=== PATIENT | female | born 1965 | race Caucasian/White ===

== ENCOUNTER 2023-03-05 11:44 | Inpatient (IN) | payer OTHER ==
[2023-03-05] MEDS ORDERED: THIAMINE 100 MG/ML 2 ML VIAL IM STA (11:58)
[2023-03-05] MEDS ORDERED: LORazepam 2 MG/ML INJ IV PRN (11:58)
[2023-03-05] MEDS ORDERED: SODIUM CHLORIDE 0.9% 1,000 ML IV STA (11:58)
--- NOTE | 2023-03-05 12:10 | ED ---
Alcohol HPI - General Chief Complaint: Alcohol Stated Complaint: ETOH Time Seen by Provider: 03/05/23 11:51 Source: patient, EMS, RN notes reviewed Mode of arrival: EMS Limitations: altered mental status (intoxication) - History of Present Illness Initial Comments: This is a 57-year-old non-binary patient who presents to the emergency department for alcohol intoxication. Patient presents from [facility]. [facility] states that his alcohol level was over 200 on the breath alcohol test. However, when I went to examine the patient, they state that they were here to take a nap. Also states that their last drink was 2 days ago. States that they consumed "a lot of vodka". Also reports a history of withdrawal seizures. States that they currently feels shaky, nauseous, and sleepy. MD Complaint: alcohol intoxication Associated Symptoms: nausea Chronic Alcohol Use: Yes - Related Data Home Medications Medication Instructions Recorded Confirmed Albuterol Inhaler [Ventolin Hfa 2 puff INHALATION RT-Q4H PRN 03/05/23 03/05/23 Inhaler] Estradiol Valerate 20 Mg/Ml 5 mg IM Q5D 03/05/23 03/05/23 FLUoxetine HCL [PROzac] 40 mg PO BID 03/05/23 03/05/23 HYDROcodone/APAP 5-325MG [[place] 1 tab PO Q4H PRN 03/05/23 03/05/23 5-325] Meloxicam [Mobic] 15 mg PO DAILY PRN 03/05/23 03/05/23 Multivitamins, Thera [Multivitamin 1 tab PO DAILY 03/05/23 03/05/23 (formulary)] Nicotine 21Mg/24Hr Patch [Habitrol] 1 patch TRANSDERM DAILY PRN 03/05/23 03/05/23 busPIRone HCl [Buspar] 5 mg PO TID 03/05/23 03/05/23 cloNIDine HCL 0.1 mg PO DAILY 03/05/23 03/05/23 diphenhydrAMINE [Benadryl] 50 mg PO TID 03/05/23 03/05/23 hydrOXYzine pamoate 100 mg PO BID PRN 03/05/23 03/05/23 oxyBUTYnin chloride [oxyBUTYnin 5 mg PO DAILY 03/05/23 03/05/23 chloride ER] traZODone HCL 150 mg PO HS 03/05/23 03/05/23 Allergies Allergy/AdvReac Type Severity Reaction Status Date / Time No Known Allergies Allergy Verified 03/05/23 14:16 Review of Systems ROS Statement: Those systems with pertinent positive or pertinent negative responses have been documented in the HPI. ROS Other: All systems not noted in ROS Statement are negative. Past Medical History Past Medical History: Cancer Additional Past Medical History / Comment(s): prostate cancer Past Psychological History: Anxiety, Depression Smoking Status: Current every day smoker Past Alcohol Use History: Heavy Past Drug Use History: None Reported General Exam Limitations: altered mental status (secondary to intoxication) General appearance: alert, appears intoxicated Head exam: Present: atraumatic, normocephalic, normal inspection Eye exam: Present: normal appearance, PERRL, EOMI. Absent: scleral icterus, conjunctival injection, periorbital swelling Respiratory exam: Present: normal lung sounds bilaterally. Absent: respiratory distress, wheezes, rales, rhonchi, stridor Cardiovascular Exam: Present: regular rate, normal rhythm, normal heart sounds. Absent: systolic murmur, diastolic murmur, rubs, gallop, clicks Neurological exam: Present: alert, oriented X3, other (intoxicated) Skin exam: Present: warm, dry, intact, normal color. Absent: rash Course Vital Signs 03/05/23 11:54 Temperature 97.2 F Pulse Rate 92 Respiratory 18 Rate Blood Pressure 126/80 O2 Sat by Pulse 96 Oximetry Medical Decision Making - Medical Decision Making This is a 57-year-old non-binary patient who presents to the emergency department for alcohol intoxication. Was pt. sent in by a medical professional or institution? @ -[facility] Did you speak to anyone other than the patient for history? @ -No Did you review nursing and triage notes? @ -Yes, and I agree, it is accurate with regards to the patient's symptoms. Were old charts reviewed? @ -No Differential Diagnosis? @ -Differential Alcohol Intoxication: Sympathomimetic syndrome, anti-muscarinic syndrome, serotonin syndrome, neuroleptic malignant syndrome, thyrotoxicosis, encephalitis, acute psychosis, hypoglycemia, trauma, sepsis. This is not meant to be an all-inclusive list. EKG interpreted by me (3pts min.)? @ -Sinus rhythm. Prolonged QT interval. Ventricular rate 89 bpm, PA interval 159 ms, QRS duration 81 ms, QTC 533 ms. X-rays interpreted by me (1pt min.)? @ -Not obtained CT interpreted by me (1pt min.)? @ -Not obtained U/S interpreted by me (1pt. min.)? @ -Not obtained What testing was considered but not performed? (CT, X-rays, U/S, labs)? Why? @ -None What meds were considered but not given? Why? @ -None Did you discuss the management of the patient with other professionals? @ -Yes, Dr. Linares, who accepts the patient for admission. Did you reconcile home meds? @ -No Was smoking cessation discussed for >3mins.? @ -No Was critical care preformed (if so, how long)? @ -No Were there social determinants of health that impacted care today? How? (Homelessness, low income, unemployed, alcoholism, drug addiction, transportation, low edu. Level, literacy, decrease access to med. care, half-way, rehab)? @ -No Was there de-escalation of care discussed even if they declined? (Discuss DNR or withdrawal of care, Hospice)? @ -No What co-morbidities impacted this encounter? (DM, HTN, Smoking, COPD, CAD, Cancer, CVA, Hep., AIDS, mental health diagnosis, sleep apnea, morbid obesity)? @ -Chronic alcoholism Was patient admitted / discharged? @ -Admitted. Lab work obtained revealing a critically low calcium of 6.2. EKG revealed a prolonged QT interval of 507 and then 533 on repeat. Ionized calcium was ordered and the patient was started on 1 g of calcium gluconate. Alcohol is also elevated at a level of 350. [facility] will not accept the patient with an alcohol greater than 300. Additionally, in light of the critically low hypocalcemia, patient will be admitted to medicine for further management. Potassium is low as well at 3.1 and they were subsequently given 40 mEq of k- dur. Magnesium oxide 400mg administered as well due to the QT prolongation. Dr. Kruse recommended a repeat CMP to verify the accuracy of the current values. CMP did overall look much better, however, this was obtained after the patient received both the calcium and potassium. The EKG revealing QT prolongation was obtained following medication administration. CIWA protocol is in place for when withdrawal symptoms start to take place. Undiagnosed new problem with uncertain prognosis? @ -None Drug Therapy requiring intensive monitoring for toxicity (Heparin, Nitro, Insulin, Cardizem)? @ -None Were any procedures done? @ -None Diagnosis/symptom? @ -Alcohol intoxication, hypocalcemia, QT prolongation Acute, or Chronic, or Acute on Chronic? @ -Acute Uncomplicated (without systemic symptoms) or Complicated (systemic symptoms)? @ -Complicated Side effects of treatment? @ -None Exacerbation, Progression, or Severe Exacerbation] @ -Not applicable Poses a threat to life or bodily function? @ -Yes This case was discussed in detail with the attending ED physician, Dr. Martínez. Presentation, findings, and treatment plan discussed in detail as well. - Lab Data Result diagrams: 03/05/23 12:14 03/05/23 14:18 Lab Results 03/05/23 03/05/23 03/05/23 Range/Units 12:14 12:14 13:08 WBC 8.3 (3.8-10.6) k/uL RBC 3.58 L (4.30-5.90) m/uL Hgb 11.9 L (13.0-17.5) gm/dL Hct 35.0 L (39.0-53.0) % MCV 97.6 (80.0-100.0) fL MCH 33.3 (25.0-35.0) pg MCHC 34.1 (31.0-37.0) g/dL RDW 14.5 (11.5-15.5) % Plt Count 146 L (150-450) k/uL MPV 7.9 Neutrophils % 79 % Lymphocytes % 11 % Monocytes % 8 % Eosinophils % 1 % Basophils % 0 % Neutrophils # 6.6 (1.3-7.7) k/uL Lymphocytes # 0.9 L (1.0-4.8) k/uL Monocytes # 0.7 (0-1.0) k/uL Eosinophils # 0.0 (0-0.7) k/uL Basophils # 0.0 (0-0.2) k/uL PT 10.8 (9.0-12.0) sec INR 1.0 (<1.2) Sodium 139 (137-145) mmol/L Potassium 3.1 L (3.5-5.1) mmol/L Chloride 112 H (98-107) mmol/L Carbon Dioxide 13 L (22-30) mmol/L Anion Gap 14 mmol/L BUN 12 (9-20) mg/dL Creatinine 0.56 L (0.66-1.25) mg/dL Est GFR (CKD-EPI)AfAm 131 (>60 ml/min/1.73 sqM) Est GFR (CKD-EPI)NonAf 113 (>60 ml/min/1.73 sqM) Glucose 72 L (74-99) mg/dL Calcium 6.2 L* (8.4-10.2) mg/dL Phosphorus 2.3 L (2.5-4.5) mg/dL Magnesium 1.6 (1.6-2.3) mg/dL Total Bilirubin 0.4 (0.2-1.3) mg/dL AST 45 (17-59) U/L ALT 16 (4-49) U/L Alkaline Phosphatase 105 (38-126) U/L Total Protein 6.0 L (6.3-8.2) g/dL Albumin 3.1 L (3.5-5.0) g/dL Amylase 42 (30-110) U/L Lipase 236 (23-300) U/L Serum Alcohol 350 H* mg/dL Disposition Clinical Impression: Hypocalcemia, Alcoholic intoxication, QT prolongation Disposition: ADMITTED IP TO THIS HOSP
[2023-03-05] MEDS ORDERED: KETOROLAC 15 MG/ML 1 ML VIAL IVP STA (12:22)
[2023-03-05 12:39] LABS: Albumin 3.1 g/dL (3.5-5.0); Magnesium 1.6 mg/dL (1.6-2.3); Phosphorus 2.3 mg/dL (2.5-4.5); Potassium 3.1 mmol/L (3.5-5.1); Total Bilirubin 0.4 mg/dL (0.2-1.3)
[2023-03-05 12:46] LABS: Basophils % (A) 0 %; Eosinophils % (A) 1 %; HGB 11.9 gm/dL (13.0-17.5); Lymphocytes # (A) 0.9 k/uL (1.0-4.8); Lymphocytes % (A) 11 %; MCH 33.3 pg (25.0-35.0); MCHC 34.1 g/dL (31.0-37.0); MCV 97.6 fL (80.0-100.0); Mean Platelet Volume 7.9; Monocytes # (A) 0.7 k/uL (0-1.0); Monocytes % (A) 8 %; Neutrophils # (A) 6.6 k/uL (1.3-7.7); Neutrophils % (A) 79 %; Platelet Count 146 k/uL (150-450); RBC 3.58 m/uL (4.30-5.90); RDW 14.5 % (11.5-15.5); WBC 8.3 k/uL (3.8-10.6)
[2023-03-05 12:57] LABS: Calcium 6.2 mg/dL (8.4-10.2)
[2023-03-05] MEDS ORDERED: CALCIUM GLUCONATE IN NACL 1 GM in SALINE 1 100ML.BAG IVPB ONE (13:05)
[2023-03-05] MEDS ORDERED: POTASSIUM CHLORIDE ER 20 MEQ TAB.ER PO STA ×2 (13:07→15:35)
[2023-03-05] MEDS ORDERED: ONDANSETRON 4 MG/2 ML VIAL IVP PRN (13:18)
[2023-03-05] MEDS ORDERED: ACETAMINOPHEN TAB 325 MG TAB PO PRN (13:18)
[2023-03-05] MEDS ORDERED: IBUPROFEN 400 MG TAB PO PRN (13:18)
[2023-03-05] MEDS ORDERED: KETOROLAC 15 MG/ML 1 ML VIAL IVP PRN (13:18)
[2023-03-05] MEDS ORDERED: NALOXONE 0.4 MG/ML 1 ML VIAL IV PRN (13:18)
[2023-03-05 13:39] LABS: Prothrombin Time 10.8 sec (9.0-12.0)
[2023-03-05 14:33] LABS: Ionized Calcium 4.6 mg/dL (4.5-5.3)
[2023-03-05 14:41] LABS: Albumin 3.7 g/dL (3.5-5.0); Calcium 7.7 mg/dL (8.4-10.2); Potassium 3.3 mmol/L (3.5-5.1); Total Bilirubin 0.4 mg/dL (0.2-1.3); Total Protein 6.7 g/dL (6.3-8.2)
[2023-03-05] MEDS: MAGNESIUM OXIDE 400 MG TAB PO STA ×2 (14:45→15:53)
[2023-03-05] MEDS: LORazepam 2 MG/ML INJ IV PRN ×2 (15:54→16:15)
[2023-03-06] MEDS: LORazepam 2 MG/ML INJ IV PRN ×5 (00:17→17:11)
[2023-03-06] MEDS ORDERED: ALBUTEROL NEBULIZED 2.5 MG/3 ML INHALATION PRN (00:47)
[2023-03-06] MEDS ORDERED: NON FORMULARY DRUG (Meloxicam [Mobic] 15 MG Tablet) PO PRN (00:47)
[2023-03-06] MEDS ORDERED: hydrOXYzine pamoate 25 MG CAP PO PRN (00:47)
[2023-03-06] MEDS ORDERED: NICOTINE 21MG/24HR PATCH TRANSDERM PRN (00:47)
[2023-03-06] MEDS ORDERED: ONDANSETRON 4 MG/2 ML VIAL IVP PRN (00:49)
--- NOTE | 2023-03-06 01:46 | P.HPIM ---
History of Present Illness H&P Date: 03/05/23 Chief Complaint: Alcohol intoxication Patient is a 57-year-old nonbinary patient presents to ER due to acute alcohol intoxication. Patient was transferred from [facility] facility. Patient was found to be intoxicated with alcohol level greater than 200. Patient has been drinking 1/5 of alcohol daily. Last drink was 9 PM last night. Patient went to [facility] for detoxification. However his complaints of generalized body pains. Does have a history of alcohol withdrawal seizures. Patient feels nauseous and shaky and sleepy. Denies any complaints of chest pain or shortness of breath. No leg swelling. No cough or sputum production. Laboratory data showed WBC 8.3 hemoglobin 11.9 and platelets 146 Sodium 139, potassium 3.1, chloride 112, bicarb 13 and calcium 6.2. Phosphorus 2.3. Magnesium 1.6. Albumin 3.1 Serum alcohol level is 350 and lipase level is 236. Review of Systems Complete review of systems could not be obtained from the patient except as per HPI. Past Medical History Past Medical History: Cancer Additional Past Medical History / Comment(s): prostate cancer Past Psychological History: Anxiety, Depression Smoking Status: Current every day smoker Past Alcohol Use History: Heavy Past Drug Use History: None Reported Medications and Allergies Home Medications Medication Instructions Recorded Confirmed Type Albuterol Inhaler [Ventolin Hfa 2 puff INHALATION RT-Q4H PRN 03/05/23 03/05/23 History Inhaler] Estradiol Valerate 20 Mg/Ml 5 mg IM Q5D 03/05/23 03/05/23 History FLUoxetine HCL [PROzac] 40 mg PO BID 03/05/23 03/05/23 History HYDROcodone/APAP 5-325MG [[place] 1 tab PO Q4H PRN 03/05/23 03/05/23 History 5-325] Meloxicam [Mobic] 15 mg PO DAILY PRN 03/05/23 03/05/23 History Multivitamins, Thera [Multivitamin 1 tab PO DAILY 03/05/23 03/05/23 History (formulary)] Nicotine 21Mg/24Hr Patch [Habitrol] 1 patch TRANSDERM DAILY PRN 03/05/23 03/05/23 History busPIRone HCl [Buspar] 5 mg PO TID 03/05/23 03/05/23 History cloNIDine HCL 0.1 mg PO DAILY 03/05/23 03/05/23 History diphenhydrAMINE [Benadryl] 50 mg PO TID 03/05/23 03/05/23 History hydrOXYzine pamoate 100 mg PO BID PRN 03/05/23 03/05/23 History oxyBUTYnin chloride [oxyBUTYnin 5 mg PO DAILY 03/05/23 03/05/23 History chloride ER] traZODone HCL 150 mg PO HS 03/05/23 03/05/23 History Allergies Allergy/AdvReac Type Severity Reaction Status Date / Time No Known Allergies Allergy Verified 03/05/23 14:16 Physical Exam Vitals: Vital Signs Temp Pulse Resp BP Pulse Ox 03/05/23 11:54 97.2 F 92 18 126/80 96 Intake and Output 03/05/23 03/05/23 03/05/23 06:59 14:59 22:59 Other: Weight 86.183 kg Results CBC & Chem 7: 03/05/23 12:14 03/05/23 14:18 Labs: Abnormal Lab Results - Last 24 Hours (Table) 03/05/23 03/05/23 03/05/23 Range/Units 12:14 12:14 14:18 RBC 3.58 L (4.30-5.90) m/uL Hgb 11.9 L (13.0-17.5) gm/dL Hct 35.0 L (39.0-53.0) % Plt Count 146 L (150-450) k/uL Lymphocytes # 0.9 L (1.0-4.8) k/uL Potassium 3.1 L 3.3 L (3.5-5.1) mmol/L Chloride 112 H (98-107) mmol/L Carbon Dioxide 13 L 19 L (22-30) mmol/L Creatinine 0.56 L (0.66-1.25) mg/dL Glucose 72 L (74-99) mg/dL Calcium 6.2 L* 7.7 L (8.4-10.2) mg/dL Phosphorus 2.3 L (2.5-4.5) mg/dL Alkaline Phosphatase 129 H (38-126) U/L Total Protein 6.0 L (6.3-8.2) g/dL Albumin 3.1 L (3.5-5.0) g/dL Serum Alcohol 350 H* mg/dL Thrombosis Risk Factor Assmnt - DVT/VTE Prophylaxis DVT/VTE Prophylaxis: Pharmacologic Prophylaxis ordered Assessment and Plan Assessment: Acute alcohol intoxication with alcohol level 350. Hypocalcemia Hypokalemia and hypomagnesemia Alcohol abuse Anxiety/depression History of prostate cancer GI and DVT prophylaxis Plan: Patient will be continued on IV hydration with normal saline. Patient was given calcium gluconate. Repeat calcium level 7.7. Albumin 3.7. Follow-up vitamin D level. Continue to monitor for alcohol withdrawal symptoms. Replace electrolytes and follow closely. Time with Patient: Greater than 30
[2023-03-06] MEDS: SODIUM CHLORIDE 0.9% 1,000 ML IV SCH ×2 (03:23→17:06)
[2023-03-06] MEDS: MAGNESIUM SULFATE-D5W PMX 1 GM in DEXTROSE/WATER 1 100ML.BAG IVPB SCH ×2 (03:24→04:38)
[2023-03-06] MEDS: traZODone HCL 50 MG TAB PO SCH ×2 (03:47→19:53)
[2023-03-06] MEDS: busPIRone HCl 5 MG TAB PO SCH ×4 (03:48→19:53)
[2023-03-06] MEDS: HEPARIN SODIUM,PORCINE/PF 5,000 UNIT/0.5 ML SYRINGE SQ SCH ×2 (08:32→17:06)
[2023-03-06] MEDS: FLUoxetine HCL 20 MG CAP PO SCH ×2 (08:33→19:53)
[2023-03-06] MEDS: THIAMINE 100 MG TAB PO SCH (08:33)
[2023-03-06] MEDS: PANTOPRAZOLE 40 MG/10 ML VIAL IVP SCH (08:33)
[2023-03-06] MEDS: OXYBUTYNIN XL 5 MG TAB.ER.24 PO SCH (08:33)
[2023-03-06] MEDS: MULTIVITAMINS, THERA 1 EACH TAB PO SCH (08:33)
[2023-03-06] MEDS ORDERED: ESTRADIOL VALERATE IM SCH (09:00)
[2023-03-06 09:21] LABS: Calcium 7.8 mg/dL (8.4-10.2); Potassium 4.1 mmol/L (3.5-5.1)
[2023-03-06] MEDS: HYDROcodone/APAP 5-325MG 1 EACH TAB PO PRN (11:13)
--- NOTE | 2023-03-06 14:57 | P.PN ---
Subjective Progress Note Date: 03/06/23 Patient is a 57-year-old nonbinary patient presents to ER due to acute alcohol intoxication. Patient was transferred from [facility] facility. Patient was found to be intoxicated with alcohol level greater than 200. Patient has been drinking 1/5 of alcohol daily. Last drink was 9 PM last night. Patient went to [facility] for detoxification. However his complaints of generalized body pains. Does have a history of alcohol withdrawal seizures. Patient feels nauseous and shaky and sleepy. Denies any complaints of chest pain or shortness of breath. No leg swelling. No cough or sputum production. Laboratory data showed WBC 8.3 hemoglobin 11.9 and platelets 146 Sodium 139, potassium 3.1, chloride 112, bicarb 13 and calcium 6.2. Phosphorus 2.3. Magnesium 1.6. Albumin 3.1 Serum alcohol level is 350 and lipase level is 236. 03/06. Patient seen and examined. Sodium this morning is 131, potassium 4.1, BUN is 15, creatinine 0.61, calcium 7.8. Patient still complaining of generalized body aches. Denies any auditory or visual hallucinations REVIEW OF SYSTEMS: CONSTITUTIONAL: No fever, no malaise,. CARDIOVASCULAR: No chest pain, no palpitations, no syncope. PULMONARY: No shortness of breath, no cough, GASTROINTESTINAL: No diarrhea, no nausea, no vomiting, no abdominal pain. NEUROLOGICAL: No headaches, no weakness, PHYSICAL EXAMINATION: GENERAL: The patient is alert and oriented x3, not in any acute distress. Well developed, well nourished. HEENT: Pupils are round and equally reacting to light. EOMI. No scleral icterus. No conjunctival pallor. Normocephalic, atraumatic. No pharyngeal erythema. No thyromegaly. CARDIOVASCULAR: S1 and S2 present. No murmurs, rubs, or gallops. PULMONARY: Chest is clear to auscultation, no wheezing or crackles. ABDOMEN: Soft, nontender, nondistended, normoactive bowel sounds. No palpable organomegaly. MUSCULOSKELETAL: No joint swelling or deformity. EXTREMITIES: No cyanosis, clubbing, or pedal edema. NEUROLOGICAL: Gross neurological examination did not reveal any focal deficits. SKIN: No rashes. Assessment and plan Acute alcohol intoxication with alcohol level 350. Hypocalcemia Hypokalemia and hypomagnesemia Alcohol abuse Anxiety/depression History of prostate cancer Monitor vital signs Monitor CBC Monitor CMP Continue telemetry monitoring Continue CIWA protocol Continue thiamine and folic acid Continue IV fluids Patient was given calcium gluconate. Repeat calcium level 7.7. Albumin 3.7. Follow-up vitamin D level. Continue to monitor for alcohol withdrawal symptoms. Replace electrolytes and follow closely. Objective - Vital Signs Vital signs: Vital Signs Temp 98.5 F 03/06/23 08:00 Pulse 97 03/06/23 11:15 Resp 24 03/06/23 11:15 BP 113/64 03/06/23 11:15 Pulse Ox 97 03/06/23 11:15 FiO2 Intake & Output 03/05/23 03/06/23 03/06/23 18:59 06:59 18:59 Intake Total 640 118 Balance 640 118 Weight 86.183 kg 86.183 kg Intake: Intake, IV Titration 100 Amount Magnesium Sulfate-D5w Pmx 100 1 gm In Dextrose/Water 1 100ml.bag @ 100 mls/hr IVPB Q1H [facility] Rx#: [id number] Oral 540 118 Other: Voiding Method Urinal Urinal # Voids 1 1 - Labs CBC & Chem 7: 03/05/23 12:14 03/06/23 08:25 Labs: Abnormal Lab Results - Last 24 Hours (Table) 03/05/23 03/05/23 03/05/23 Range/Units 12:14 12:14 14:18 RBC 3.58 L (4.30-5.90) m/uL Hgb 11.9 L (13.0-17.5) gm/dL Hct 35.0 L (39.0-53.0) % Plt Count 146 L (150-450) k/uL Lymphocytes # 0.9 L (1.0-4.8) k/uL Sodium (137-145) mmol/L Potassium 3.1 L 3.3 L (3.5-5.1) mmol/L Chloride 112 H (98-107) mmol/L Carbon Dioxide 13 L 19 L (22-30) mmol/L Creatinine 0.56 L (0.66-1.25) mg/dL Glucose 72 L (74-99) mg/dL Calcium 6.2 L* 7.7 L (8.4-10.2) mg/dL Phosphorus 2.3 L (2.5-4.5) mg/dL Alkaline Phosphatase 129 H (38-126) U/L Total Protein 6.0 L (6.3-8.2) g/dL Albumin 3.1 L (3.5-5.0) g/dL Serum Alcohol 350 H* mg/dL 03/06/23 Range/Units 08:25 RBC (4.30-5.90) m/uL Hgb (13.0-17.5) gm/dL Hct (39.0-53.0) % Plt Count (150-450) k/uL Lymphocytes # (1.0-4.8) k/uL Sodium 131 L (137-145) mmol/L Potassium (3.5-5.1) mmol/L Chloride (98-107) mmol/L Carbon Dioxide 19 L (22-30) mmol/L Creatinine 0.61 L (0.66-1.25) mg/dL Glucose 143 H (74-99) mg/dL Calcium 7.8 L (8.4-10.2) mg/dL Phosphorus (2.5-4.5) mg/dL Alkaline Phosphatase (38-126) U/L Total Protein (6.3-8.2) g/dL Albumin (3.5-5.0) g/dL Serum Alcohol mg/dL
[2023-03-07] MEDS: HEPARIN SODIUM,PORCINE/PF 5,000 UNIT/0.5 ML SYRINGE SQ SCH ×4 (00:09→23:51)
[2023-03-07] MEDS: LORazepam 2 MG/ML INJ IV PRN ×3 (07:02→11:47)
[2023-03-07] MEDS: PANTOPRAZOLE 40 MG/10 ML VIAL IVP SCH (07:55)
[2023-03-07] MEDS: THIAMINE 100 MG TAB PO SCH (07:55)
[2023-03-07] MEDS: MULTIVITAMINS, THERA 1 EACH TAB PO SCH (07:56)
[2023-03-07] MEDS: OXYBUTYNIN XL 5 MG TAB.ER.24 PO SCH (07:56)
[2023-03-07] MEDS: busPIRone HCl 5 MG TAB PO SCH ×3 (07:56→21:03)
[2023-03-07] MEDS: FLUoxetine HCL 20 MG CAP PO SCH ×2 (07:56→21:03)
[2023-03-07 09:17] LABS: Basophils % (A) 0 %; Eosinophils # (A) 0.1 k/uL (0-0.7); Eosinophils % (A) 2 %; HCT 33.3 % (39.0-53.0); HGB 10.8 gm/dL (13.0-17.5); Lymphocytes # (A) 0.9 k/uL (1.0-4.8); Lymphocytes % (A) 18 %; MCHC 32.4 g/dL (31.0-37.0); MCV 101.8 fL (80.0-100.0); Macrocytosis Slight; Monocytes # (A) 0.2 k/uL (0-1.0); Monocytes % (A) 5 %; Neutrophils # (A) 3.6 k/uL (1.3-7.7); Neutrophils % (A) 74 %; Platelet Count 194 k/uL (150-450); RBC 3.28 m/uL (4.30-5.90); RDW 14.3 % (11.5-15.5); WBC 4.9 k/uL (3.8-10.6)
[2023-03-07 09:31] LABS: Potassium 3.9 mmol/L (3.5-5.1); Total Bilirubin 0.6 mg/dL (0.2-1.3)
[2023-03-07] MEDS: SODIUM CHLORIDE 0.9% 1,000 ML IV SCH ×2 (09:47→15:52)
[2023-03-07] MEDS: HYDROcodone/APAP 5-325MG 1 EACH TAB PO PRN ×2 (11:46→21:08)
--- NOTE | 2023-03-07 13:25 | P.PN ---
Subjective Progress Note Date: 03/07/23 Patient is a 57-year-old nonbinary patient presents to ER due to acute alcohol intoxication. Patient was transferred from [facility] facility. Patient was found to be intoxicated with alcohol level greater than 200. Patient has been drinking 1/5 of alcohol daily. Last drink was 9 PM last night. Patient went to [facility] for detoxification. However his complaints of generalized body pains. Does have a history of alcohol withdrawal seizures. Patient feels nauseous and shaky and sleepy. Denies any complaints of chest pain or shortness of breath. No leg swelling. No cough or sputum production. Laboratory data showed WBC 8.3 hemoglobin 11.9 and platelets 146 Sodium 139, potassium 3.1, chloride 112, bicarb 13 and calcium 6.2. Phosphorus 2.3. Magnesium 1.6. Albumin 3.1 Serum alcohol level is 350 and lipase level is 236. 03/06. Patient seen and examined. Sodium this morning is 131, potassium 4.1, BUN is 15, creatinine 0.61, calcium 7.8. Patient still complaining of generalized body aches. Denies any auditory or visual hallucinations 03/07. Patient seen and examined. Still complaining of generalized body aches. WBC 4.9, hemoglobin 10.8, sodium 133, potassium 3.9, BUN is 9, creatinine 0.63, REVIEW OF SYSTEMS: CONSTITUTIONAL: No fever, no malaise,. CARDIOVASCULAR: No chest pain, no palpitations, no syncope. PULMONARY: No shortness of breath, no cough, GASTROINTESTINAL: No diarrhea, no nausea, no vomiting, no abdominal pain. NEUROLOGICAL: No headaches, no weakness, PHYSICAL EXAMINATION: GENERAL: The patient is alert and oriented x3, not in any acute distress. Well developed, well nourished. HEENT: Pupils are round and equally reacting to light. EOMI. No scleral icterus. No conjunctival pallor. Normocephalic, atraumatic. No pharyngeal erythema. No thyromegaly. CARDIOVASCULAR: S1 and S2 present. No murmurs, rubs, or gallops. PULMONARY: Chest is clear to auscultation, no wheezing or crackles. ABDOMEN: Soft, nontender, nondistended, normoactive bowel sounds. No palpable organomegaly. MUSCULOSKELETAL: No joint swelling or deformity. EXTREMITIES: No cyanosis, clubbing, or pedal edema. NEUROLOGICAL: Gross neurological examination did not reveal any focal deficits. SKIN: No rashes. Assessment and plan Acute alcohol intoxication with alcohol level 350. Hypocalcemia Hypokalemia and hypomagnesemia Alcohol abuse Anxiety/depression History of prostate cancer Vitamin D insufficiency Monitor vital signs Monitor CBC Monitor CMP Continue telemetry monitoring Continue CIWA protocol Continue thiamine and folic acid Start Os-Emigdio Continue IV fluids Continue to monitor for alcohol withdrawal symptoms. Replace electrolytes and follow closely. Objective - Vital Signs Vital signs: Vital Signs Temp 98.3 F 03/07/23 11:32 Pulse 85 03/07/23 11:32 Resp 16 03/07/23 11:32 BP 119/75 03/07/23 11:32 Pulse Ox 98 03/07/23 11:32 FiO2 Intake & Output 03/06/23 03/07/23 03/07/23 18:59 06:59 18:59 Intake Total 236 540 596 Output Total 300 Balance -64 540 596 Intake: Oral 236 540 596 Output: Urine 300 Other: Voiding Method Urinal Urinal Urinal # Voids 1 - Labs CBC & Chem 7: 03/07/23 08:34 03/07/23 08:34 Labs: Abnormal Lab Results - Last 24 Hours (Table) 03/06/23 03/07/23 03/07/23 Range/Units 08:25 08:34 08:34 RBC 3.28 L (4.30-5.90) m/uL Hgb 10.8 L (13.0-17.5) gm/dL Hct 33.3 L (39.0-53.0) % MCV 101.8 H (80.0-100.0) fL Lymphocytes # 0.9 L (1.0-4.8) k/uL Sodium 133 L (137-145) mmol/L Creatinine 0.63 L (0.66-1.25) mg/dL Glucose 127 H (74-99) mg/dL Calcium 8.0 L (8.4-10.2) mg/dL Total Protein 6.0 L (6.3-8.2) g/dL Albumin 3.0 L (3.5-5.0) g/dL Vitamin D 25-Hydroxy 28.4 L (30.0-100.0) ng/mL
[2023-03-07] MEDS: CALCIUM CARB-VIT D 500 MG-5 MCG TAB PO SCH (16:56)
[2023-03-07] MEDS: traZODone HCL 50 MG TAB PO SCH (21:03)
[2023-03-08] MEDS: HYDROcodone/APAP 5-325MG 1 EACH TAB PO PRN (03:22)
[2023-03-08 03:59] LABS: Amphetamine Screen,Urine Not Detected (NotDetected); Barbiturate Screen,Urine Not Detected (NotDetected); Benzodiazepines Screen,Urine Detected (NotDetected); Cocaine Screen,Urine Not Detected (NotDetected); Methadone Screen, Urine Not Detected (NotDetected); Opiate Screen,Urine Detected (NotDetected); Oxycodone Screen, Urine Not Detected (NotDetected); Phencyclidine Screen,Urine Not Detected (NotDetected); Tricyclic Antidepressant,Urine Not Detected (NotDetected); Urn Cannabinoid Scrn Not Detected (NotDetected)
[2023-03-08] MEDS: CALCIUM CARB-VIT D 500 MG-5 MCG TAB PO SCH (07:00)
[2023-03-08] MEDS: FLUoxetine HCL 20 MG CAP PO SCH (09:42)
[2023-03-08] MEDS: busPIRone HCl 5 MG TAB PO SCH (09:42)
[2023-03-08] MEDS: MULTIVITAMINS, THERA 1 EACH TAB PO SCH (09:42)
[2023-03-08] MEDS: THIAMINE 100 MG TAB PO SCH (09:42)
[2023-03-08] MEDS: OXYBUTYNIN XL 5 MG TAB.ER.24 PO SCH (09:42)
[2023-03-08] MEDS: HEPARIN SODIUM,PORCINE/PF 5,000 UNIT/0.5 ML SYRINGE SQ SCH (09:43)
[2023-03-08] MEDS: PANTOPRAZOLE 40 MG/10 ML VIAL IVP SCH (09:43)
[2023-03-08 10:33] VITALS: BP 120/68; PULSE 78; RESP 16; TEMP 98.8
--- NOTE | 2023-03-08 13:56 | P.DS ---
Providers Date of admission: 03/05/23 14:07 Expected date of discharge: 03/08/23 Attending physician: Gem Linares Primary care physician: Stated None Hospital Course: Discharge diagnoses; Acute alcohol intoxication with alcohol level 350. Hypocalcemia Hypokalemia and hypomagnesemia Alcohol abuse Anxiety/depression History of prostate cancer Vitamin D insufficiency Hospital course; Patient is a 57-year-old nonbinary patient presents to ER due to acute alcohol intoxication. Patient was transferred from [facility] facility. Patient was found to be intoxicated with alcohol level greater than 200. Patient has been drinking 1/5 of alcohol daily. Last drink was 9 PM last night. Patient went to [facility] for detoxification. However his complaints of generalized body pains. Does have a history of alcohol withdrawal seizures. Patient feels nauseous and shaky and sleepy. Denies any complaints of chest pain or shortness of breath. No leg swelling. No cough or sputum production. Laboratory data showed WBC 8.3 hemoglobin 11.9 and platelets 146 Sodium 139, potassium 3.1, chloride 112, bicarb 13 and calcium 6.2. Phosphorus 2.3. Magnesium 1.6. Albumin 3.1 Serum alcohol level is 350 and lipase level is 236. 03/06. Patient seen and examined. Sodium this morning is 131, potassium 4.1, BUN is 15, creatinine 0.61, calcium 7.8. Patient still complaining of generalized body aches. Denies any auditory or visual hallucinations 03/07. Patient seen and examined. Still complaining of generalized body aches. WBC 4.9, hemoglobin 10.8, sodium 133, potassium 3.9, BUN is 9, creatinine 0.63, 03/08. Patient seen and examined. Patient CIWA scores have been low. Patient medically cleared for discharge back to [facility] PHYSICAL EXAMINATION: GENERAL: The patient is alert and oriented x3, not in any acute distress. Well developed, well nourished. HEENT: Pupils are round and equally reacting to light. EOMI. No scleral icterus. No conjunctival pallor. Normocephalic, atraumatic. No pharyngeal erythema. No thyromegaly. CARDIOVASCULAR: S1 and S2 present. No murmurs, rubs, or gallops. PULMONARY: Chest is clear to auscultation, no wheezing or crackles. ABDOMEN: Soft, nontender, nondistended, normoactive bowel sounds. No palpable organomegaly. MUSCULOSKELETAL: No joint swelling or deformity. EXTREMITIES: No cyanosis, clubbing, or pedal edema. NEUROLOGICAL: Gross neurological examination did not reveal any focal deficits. SKIN: No rashes. Patient Condition at Discharge: Stable Plan - Discharge Summary Discharge Rx Participant: Yes New Discharge Prescriptions: New Calcium Carb-Vit D 500Mg-5Mcg [Oscal 500+D 5 Mcg (200 Iu)] 1 each PO BID- W/MEALS #30 tab Thiamine [Vitamin B-1] 100 mg PO DAILY #30 tab Continue FLUoxetine HCL [PROzac] 40 mg PO BID oxyBUTYnin chloride [oxyBUTYnin chloride ER] 5 mg PO DAILY Nicotine 21Mg/24Hr Patch [Habitrol] 1 patch TRANSDERM DAILY PRN PRN Reason: Nicotine Cravings Multivitamins, Thera [Multivitamin (formulary)] 1 tab PO DAILY traZODone HCL 150 mg PO HS Albuterol Inhaler [Ventolin Hfa Inhaler] 2 puff INHALATION RT-Q4H PRN PRN Reason: Shortness Of Breath busPIRone HCl [Buspar] 5 mg PO TID hydrOXYzine pamoate 100 mg PO BID PRN PRN Reason: Anxiety Meloxicam [Mobic] 15 mg PO DAILY PRN PRN Reason: Pain diphenhydrAMINE [Benadryl] 50 mg PO TID cloNIDine HCL 0.1 mg PO DAILY HYDROcodone/APAP 5-325MG [[place] 5-325] 1 tab PO Q4H PRN PRN Reason: Pain Estradiol Valerate 20 Mg/Ml 5 mg IM Q5D Discharge Medication List Albuterol Inhaler [Ventolin Hfa Inhaler] 2 puff INHALATION RT-Q4H PRN 03/05/23 [History] Estradiol Valerate 20 Mg/Ml 5 mg IM Q5D 03/05/23 [History] FLUoxetine HCL [PROzac] 40 mg PO BID 03/05/23 [History] HYDROcodone/APAP 5-325MG [[place] 5-325] 1 tab PO Q4H PRN 03/05/23 [History] Meloxicam [Mobic] 15 mg PO DAILY PRN 03/05/23 [History] Multivitamins, Thera [Multivitamin (formulary)] 1 tab PO DAILY 03/05/23 [History] Nicotine 21Mg/24Hr Patch [Habitrol] 1 patch TRANSDERM DAILY PRN 03/05/23 [History] busPIRone HCl [Buspar] 5 mg PO TID 03/05/23 [History] cloNIDine HCL 0.1 mg PO DAILY 03/05/23 [History] diphenhydrAMINE [Benadryl] 50 mg PO TID 03/05/23 [History] hydrOXYzine pamoate 100 mg PO BID PRN 03/05/23 [History] oxyBUTYnin chloride [oxyBUTYnin chloride ER] 5 mg PO DAILY 03/05/23 [History] traZODone HCL 150 mg PO HS 03/05/23 [History] Calcium Carb-Vit D 500Mg-5Mcg [[place] 500+D 5 Mcg (200 Iu)] 1 each PO BID-W/MEALS #30 tab 03/08/23 [Rx] Thiamine [Vitamin B-1] 100 mg PO DAILY #30 tab 03/08/23 [Rx] Follow up Appointment(s)/Referral(s): None,Stated [Primary Care Provider] - 1-2 days Activity/Diet/Wound Care/Special Instructions: Return to [facility] [phone] [address] [place] [address] Discharge Disposition: OTHER INSTITUTION NOT DEFINED
== END 2023-03-08 16:20 | disposition home or self-care (01) | DRG 775 ==
LOC: EDSEX → EC 11:44 → 4SSUR 14:07 → 3SCARD 14:46
PROVIDERS: ADMIT Internal Medicine; ATTEND Internal Medicine
DX: F10.129 Alcohol abuse with intoxication, unspecified (principal); Y90.8 Blood alcohol level of 240 mg/100 ml or more; E83.51 Hypocalcemia; E83.42 Hypomagnesemia; E87.6 Hypokalemia; F32.A Depression, unspecified; F41.9 Anxiety disorder, unspecified
CPT/HCPCS: 36415; 80048; 80053; 80306; 80320; 82150; 82306; 82330; 83690; 83735; 84100; 85025; 85610; 93005; 94640; 96361; 96365; 96372; 96375; 96376; 99285

== ENCOUNTER 2023-03-11 19:28 | Observation (INO) | payer OTHER ==
[2023-03-11] MEDS ORDERED: ONDANSETRON 4 MG/2 ML VIAL IVP STA (20:02)
[2023-03-11] MEDS ORDERED: LORazepam 2 MG/ML INJ IV PRN (20:03)
[2023-03-11] MEDS ORDERED: LORazepam 0.5 MG TAB PO PRN (20:03)
[2023-03-11] MEDS ORDERED: LORazepam 1 MG TAB PO PRN (20:03)
[2023-03-11] MEDS ORDERED: SODIUM CHLORIDE 0.9% 1,000 ML with MVI, ADULT NO.4 WITH VIT K 10 ML, THIAMINE 100 MG, F... IV ONE ×4 (20:30)
[2023-03-11 20:46] LABS: Basophils % (A) 0 %; Eosinophils # (A) 0.1 k/uL (0-0.7); Eosinophils % (A) 2 %; HCT 39.7 % (34.0-46.0); HGB 13.2 gm/dL (11.4-16.0); Lymphocytes # (A) 1.7 k/uL (1.0-4.8); Lymphocytes % (A) 19 %; MCHC 33.2 g/dL (31.0-37.0); MCV 102.3 fL (80.0-100.0); Macrocytosis Slight; Mean Platelet Volume 7.8; Monocytes # (A) 0.7 k/uL (0-1.0); Monocytes % (A) 8 %; Neutrophils # (A) 5.9 k/uL (1.3-7.7); Neutrophils % (A) 69 %; Platelet Count 242 k/uL (150-450); RBC 3.88 m/uL (3.80-5.40); RDW 13.8 % (11.5-15.5); WBC 8.5 k/uL (3.8-10.6)
[2023-03-11 20:57] LABS: ALT 18 U/L (4-34); AST 26 U/L (14-36); African American GFR (CKD) >90 (>60 ml/min/1.73 sqM); Albumin 4.1 g/dL (3.5-5.0); Alcohol <10 mg/dL; Alkaline Phosphatase 114 U/L (38-126); Anion Gap 10 mmol/L; Blood Urea Nitrogen 15 mg/dL (7-17); Calcium 9.8 mg/dL (8.4-10.2); Carbon Dioxide 25 mmol/L (22-30); Chloride 98 mmol/L (98-107); Glucose 100 mg/dL (74-99); Lipase 243 U/L (23-300); Non-African American GFR(CKD) 88 (>60 ml/min/1.73 sqM); Sodium 133 mmol/L (137-145); Total Bilirubin 0.4 mg/dL (0.2-1.3); Total Protein 7.7 g/dL (6.3-8.2)
[2023-03-11] MEDS: LORazepam 2 MG/ML INJ IV PRN ×2 (20:57→23:38)
[2023-03-11 21:04] LABS: Appearance,Urine Clear (Clear); Bacteria,Urine Rare /hpf; Bilirubin,Urine Negative (Negative); Blood,Urine Negative (Negative); Color,Urine Yellow; Glucose,Urine (UA) Negative (Negative); Ketones,Urine Negative (Negative); Leukocyte Esterase,Urine Trace (Negative); Mucus,Urine Moderate /hpf; Nitrite,Urine Negative (Negative); PH, Urine 6.5 (5.0-8.0); Protein,Urine Trace (Negative); RBC,Urine 1 /hpf (0-5); Squamous Epithelial Cell,Urine 4 /hpf (0-4); WBC,Urine 1 /hpf (0-5)
[2023-03-11] MEDS ORDERED: NALOXONE 0.4 MG/ML 1 ML VIAL IV PRN (22:09)
[2023-03-11] MEDS ORDERED: ONDANSETRON 4 MG/2 ML VIAL IVP PRN (22:09)
--- NOTE | 2023-03-11 22:26 | ED ---
Psych HPI - General Chief Complaint: Psychiatric Symptoms Stated Complaint: ALC DETOX Time Seen by Provider: 03/11/23 19:49 Source: patient Mode of arrival: ambulatory - History of Present Illness Initial Comments: Patient is a 57-year-old female presents to the emergency department for alcohol withdrawal. Apparently patient was sent to [facility] for detox and psychiatric evaluation for suicidal ideation. Patient was discharged from [facility] and drank alcohol before presenting to [facility] again. Patient was then sent to our emergency department for detox. Last drink was this morning. Patient drinks a fifth of vodka daily. She does have history of withdrawal seizures. States she is not suicidal anymore but still like to talk to psychiatric services. Denies homicidal ideation. Denies visual and auditory hallucinations. Denies drug use. Patient has no other concerns at this time including fever, chills, headache, shortness of breath, cough, chest pain, abdominal pain, nausea, vomiting, diarrhea, and burning with urination. - Related Data Allergies Allergy/AdvReac Type Severity Reaction Status Date / Time No Known Allergies Allergy Verified 03/11/23 21:46 Review of Systems ROS Statement: Those systems with pertinent positive or pertinent negative responses have been documented in the HPI. ROS Other: All systems not noted in ROS Statement are negative. Past Medical History Past Medical History: Cancer, COPD, Myocardial Infarction ([place]), Osteoarthritis ([place]) Past Surgical History: Heart Catheterization With Stent Past Psychological History: Anxiety, Depression Smoking Status: Current every day smoker Past Alcohol Use History: Abuse Past Drug Use History: None Reported General Exam Limitations: no limitations General appearance: alert, in no apparent distress Head exam: Present: atraumatic, normocephalic, normal inspection ENT exam: Present: other (Tongue fasciculation) Respiratory exam: Present: normal lung sounds bilaterally. Absent: respiratory distress, wheezes, rales, rhonchi, stridor Cardiovascular Exam: Present: regular rate, normal rhythm, normal heart sounds. Absent: systolic murmur, diastolic murmur, rubs, gallop, clicks GI/Abdominal exam: Present: soft, normal bowel sounds. Absent: distended, tenderness, guarding, rebound, rigid Extremities exam: Present: other (Tremulous) Neurological exam: Present: alert, oriented X3, CN II-XII intact Psychiatric exam: Present: normal affect, normal mood Skin exam: Present: warm, dry, intact, normal color. Absent: rash Course Vital Signs 03/11/23 03/11/23 03/11/23 19:40 20:50 21:58 Temperature 98.1 F 98.1 F Pulse Rate 95 78 80 Respiratory 22 20 17 Rate Blood Pressure 142/72 140/96 132/82 O2 Sat by Pulse 100 99 98 Oximetry Medical Decision Making - Medical Decision Making Was pt. sent in by a medical professional or institution ([facility], [facility], urgent care, hospital, or usp...) When possible be specific @ -No Did you speak to anyone other than the patient for history (EMS, parent, family, police, friend...)? What history was obtained from this source @ -No Did you review nursing and triage notes (agree or disagree)? Why? @ -I reviewed and agree with nursing and triage notes Were old charts reviewed (outside hosp., previous admission, EMS record, old EKG, old radiological studies, urgent care reports/EKG's, usp records)? Report findings @ -No old charts were reviewed Differential Diagnosis (chest pain, altered mental status, abdominal pain women, abdominal pain men, vaginal bleeding, weakness, fever, dyspnea, syncope, headache, dizziness, GI bleed, back pain, seizure, CVA, palpatations, mental health)? @ -alcohol withdrawal, delirium tremens, drug withdrawal EKG interpreted by me (3pts min.). @ -As above X-rays interpreted by me (1pt min.). @ -None done CT interpreted by me (1pt min.). @ -None done U/S interpreted by me (1pt. min.). @ -None done What testing was considered but not performed or refused? (CT, X-rays, U/S, labs)? Why? @ -None What meds were considered but not given or refused? Why? @ -None Did you discuss the management of the patient with other professionals (professionals i.e. [facility], [facility], lab, RT, psych nurse, child protective services social worker, library clerical assistant, teacher, agricultural technical officer, patient case coordinator)? Give summary @ -No Was smoking cessation discussed for >3mins.? @ -No Was critical care preformed (if so, how long)? @ -No Were there social determinants of health that impacted care today? How? (Homelessness, low income, unemployed, alcoholism, drug addiction, lopez sportation, low edu. Level, literacy, decrease access to med. care, chcf, rehab)? @ -No Was there de-escalation of care discussed even if they declined (Discuss DNR or withdrawal of care, Hospice)? DNR status @ -No What co-morbidities impacted this encounter? (DM, HTN, Smoking, COPD, CAD, Cancer, CVA, ARF, Chemo, Hep., AIDS, mental health diagnosis, sleep apnea, morbid obesity)? @ -None Was patient admitted / discharged? Hospital course, mention meds given and route, prescriptions, significant lab abnormalities, going to OR and other pertinent info. @ Patient presenting for alcohol withdrawal. Vitals within acceptable limits. CIWA protocol initiated. Labs are relatively unremarkable. Ativan and banana bag given patient to be admitted for alcohol withdrawal Dr. Barrientos accepts admission. Psych on consult Undiagnosed new problem with uncertain prognosis? @ -No Drug Therapy requiring intensive monitoring for toxicity (Heparin, Nitro, Insulin, Cardizem)? @ -No Were any procedures done? @ -No Diagnosis/symptom? @ -alcohol withdrawal Acute, or Chronic, or Acute on Chronic? @ -acute Uncomplicated (without systemic symptoms) or Complicated (systemic symptoms)? @ -complicated Side effects of treatment? @ -No Exacerbation, Progression, or Severe Exacerbation? @ -[No Poses a threat to life or bodily function? How? (Chest pain, [place], [place], pneumonia, PE, COPD, DKA, ARF, appy, cholecystitis, CVA, Diverticulitis, Homicidal, Suicidal, threat to staff... and all critical care pts) @ -No Dr. Mix is my attending - Lab Data Result diagrams: 03/11/23 20:29 03/11/23 20:29 Lab Results 03/11/23 03/11/23 03/11/23 Range/Units 20:29 20:29 20:29 WBC 8.5 (3.8-10.6) k/uL RBC 3.88 (3.80-5.40) m/uL Hgb 13.2 (11.4-16.0) gm/dL Hct 39.7 (34.0-46.0) % MCV 102.3 H (80.0-100.0) fL MCH 34.0 (25.0-35.0) pg MCHC 33.2 (31.0-37.0) g/dL RDW 13.8 (11.5-15.5) % Plt Count 242 (150-450) k/uL MPV 7.8 Neutrophils % 69 % Lymphocytes % 19 % Monocytes % 8 % Eosinophils % 2 % Basophils % 0 % Neutrophils # 5.9 (1.3-7.7) k/uL Lymphocytes # 1.7 (1.0-4.8) k/uL Monocytes # 0.7 (0-1.0) k/uL Eosinophils # 0.1 (0-0.7) k/uL Basophils # 0.0 (0-0.2) k/uL Macrocytosis Slight Sodium 133 L (137-145) mmol/L Potassium 4.0 (3.5-5.1) mmol/L Chloride 98 (98-107) mmol/L Carbon Dioxide 25 (22-30) mmol/L Anion Gap 10 mmol/L BUN 15 (7-17) mg/dL Creatinine 0.75 (0.52-1.04) mg/dL Est GFR (CKD-EPI)AfAm >90 (>60 ml/min/1.73 sqM) Est GFR (CKD-EPI)NonAf 88 (>60 ml/min/1.73 sqM) Glucose 100 H (74-99) mg/dL Calcium 9.8 (8.4-10.2) mg/dL Total Bilirubin 0.4 (0.2-1.3) mg/dL AST 26 (14-36) U/L ALT 18 (4-34) U/L Alkaline Phosphatase 114 (38-126) U/L Total Protein 7.7 (6.3-8.2) g/dL Albumin 4.1 (3.5-5.0) g/dL Lipase 243 (23-300) U/L Urine Color Yellow Urine Appearance Clear (Clear) Urine pH 6.5 (5.0-8.0) Ur Specific [place] 1.020 (1.001-1.035) Urine Protein Trace H (Negative) Urine Glucose (UA) Negative (Negative) Urine Ketones Negative (Negative) Urine Blood Negative (Negative) Urine Nitrite Negative (Negative) Urine Bilirubin Negative (Negative) Urine Urobilinogen 3.0 (<2.0) mg/dL Ur Leukocyte Esterase Trace H (Negative) Urine RBC 1 (0-5) /hpf Urine WBC 1 (0-5) /hpf Ur Squamous Epith Cells 4 (0-4) /hpf Urine Bacteria Rare H (None) /hpf Urine Mucus Moderate H (None) /hpf Serum Alcohol <10 mg/dL Disposition Clinical Impression: Alcohol withdrawal Disposition: ADMITTED IP TO THIS HOSP Condition: Stable Referrals: Adam Cook DO [Primary Care Provider] - 1-2 days
--- NOTE | 2023-03-12 00:06 | P.HPIM ---
History of Present Illness H&P Date: 03/11/23 The patient is a 48-year-old female with a PMH of alcohol abuse who presented to the emergency room sent in from [place] for alcohol withdrawal. The patient reports that she recently relapsed after several years of sobriety from alcohol and has been drinking a fifth of hard liquor daily for the past several weeks. She reports that her last drink was this past Wednesday 2 days ago. Reports feeling shaky and also endorsed mild diffuse abdominal discomfort. No history of delirium tremens or alcohol withdrawal seizures. Denied any additional complaints. Denied experiencing chest discomfort, shortness of breath, fever, chills, cough, nausea, vomiting, diarrhea. Laboratory evaluation in the emergency room was remarkable for MCV 102.3, UA unremarkable, and serum alcohol level less than 10 with sodium 133. ED documentation reviewed and case discussed with ED provider. Review of systems: Pertinent positives and negatives as discussed in HPI, a complete review of systems was performed and all other systems are negative. Physical examination: Vital signs reviewed General: non toxic, no distress, appears at stated age, normal weight Derm: no unusual rashes/lesions, warm Head: atraumatic, normocephalic, symmetric Eyes: EOMI, no lid lag, anicteric sclera, pupils equal round reactive to light ENT: Nose and ears atraumatic Neck: No cervical lymphadenopathy, trachea midline, supple Mouth: no lip lesion, mucus membranes moist, tongue fasciculations noted, smooth tongue Cardiovascular: S1S2 reg, no murmur, positive dorsalis pedis pulse bilateral, no edema Lungs: CTA bilateral, no rhonchi, no rales, no accessory muscle use Abdominal: soft, nontender to palpation, no guarding Ext: muscle strength 5 out of 5 in all 4 extremities grossly, no gross muscle atrophy, no contractures, outstretched hand tremor noted Neuro: CN II-XI grossly intact, no gross focal neuro deficits Psych: Alert, oriented, appropriate affect Assessment: Alcohol withdrawal in active alcoholic Macrocytosis Hyponatremia Imaging: None performed Data Review: Laboratory evaluation in the emergency room was remarkable for MCV 102.3, UA unremarkable, and serum alcohol level less than 10 with sodium 133. Plan: CIWA Protocol with Ativan IV Continue with IV fluids with normal saline 130 mL per hour Start patient on thiamine Check B12 and folate levels Start patient on Librium Advised patient on importance of cessation DVT prophylaxis: Heparin subcu The patient is admitted with an anticipated less than 2 midnight stay for evaluation of alcohol abuse CODE STATUS: Full Code Discussed with: Patient Anticipated discharge place: Home Past Medical History Past Medical History: Cancer, COPD, Myocardial Infarction ([place]), Osteoarthritis (OA) Past Surgical History: Heart Catheterization With Stent Past Psychological History: Anxiety, Depression Smoking Status: Current every day smoker Past Alcohol Use History: Abuse Past Drug Use History: None Reported Medications and Allergies Allergies Allergy/AdvReac Type Severity Reaction Status Date / Time No Known Allergies Allergy Verified 03/11/23 21:46 Physical Exam Vitals: Vital Signs Temp Pulse Pulse Resp BP BP Pulse Ox 03/11/23 23:11 98.8 F 89 16 136/77 99 03/11/23 22:31 98.0 F 71 19 127/81 97 03/11/23 21:58 80 17 132/82 98 03/11/23 20:50 98.1 F 78 20 140/96 99 03/11/23 19:40 98.1 F 95 22 142/72 100 Intake and Output 03/11/23 03/11/23 03/12/23 14:59 22:59 06:59 Other: Weight 68.039 kg Results CBC & Chem 7: 03/11/23 20:29 03/11/23 20:29 Labs: Abnormal Lab Results - Last 24 Hours (Table) 03/11/23 03/11/23 03/11/23 Range/Units 20:29 20:29 20:29 MCV 102.3 H (80.0-100.0) fL Sodium 133 L (137-145) mmol/L Glucose 100 H (74-99) mg/dL Urine Protein Trace H (Negative) Ur Leukocyte Esterase Trace H (Negative) Urine Bacteria Rare H (None) /hpf Urine Mucus Moderate H (None) /hpf
[2023-03-12] MEDS ORDERED: THIAMINE 100 MG/ML 2 ML VIAL IM ONE (00:15)
[2023-03-12] MEDS: SODIUM CHLORIDE 0.9% 1,000 ML IV SCH ×5 (01:24→23:32)
[2023-03-12] MEDS: chlordiazePOXIDE 25 MG CAP PO SCH ×4 (06:22→20:21)
[2023-03-12] MEDS: ACETAMINOPHEN TAB 325 MG TAB PO PRN (07:35)
[2023-03-12] MEDS: HEPARIN SODIUM,PORCINE/PF 5,000 UNIT/0.5 ML SYRINGE SQ SCH ×3 (08:41→23:30)
--- NOTE | 2023-03-12 15:07 | P.CN ---
Psychiatric Consult - . Consult date: 03/12/23 Consult:: 03/12/23 15:07 IDENTIFYING DATA: This patient is a , unemployed, 57-year-old female with a significant history of alcohol use disorder who presented for hospital on 03/11/2023 for alcohol detoxification from [facility]. HISTORY OF PRESENT ILLNESS: The patient presented to the hospital on 03/11/2023 from [facility] for alcohol detoxification. The patient was at [facility] for detox and to be evaluated psychiatrically for suicidal ideation. She was discharged [facility] but drank prior to going to [facility]. The patient was sent to our hospital for detoxification. The patient reports that her last drink was on 03/11/2023. Psychiatry has been consulted for evaluation of depression. The patient was noted by the ED doctor did not endorse any suicidal ideation however desired psychiatric services. Upon evaluation by this provider, the patient reports that she has been experiencing depression for the last 2-3 weeks. She reports significant symptoms of depression including crying every day, poor sleep, low motivation, and excessive feelings of guilt. She is however not endorsing any suicidal ideation, intention, and/or plan. She reports no prior attempts at suicide. The patient does not report any significant symptoms of bipolar disorder. She reports no periods of excessive energy, grandiosity, or increased goal-directed activity. The patient also denies any history of auditory or visual hallucinations. She does report that she does experience visual disturbances in the context of alcohol withdrawal however denies any visual disturbances outside of this. The patient reports that she has issues regarding her sobriety. She states that her last drink was on Wednesday. She relapsed into heavy alcohol use 2 months ago after being let go from her previous employment. She reports that prior to this, she was sober for many years. She also reports that she was attending AA. She states that she is drinking up to a fifth of liquor per day. She does report that she smokes about a half pack per day of tobacco. She denies any marijuana use. She denies any illicit drug use. The patient does express a desire to return to [facility] upon stabilization. PAST PSYCHIATRIC HISTORY: Patient has a history of depression and alcohol use disorder. Patient recalls being previously trialed on Prozac, diazepam, Valium, and trazodone. The patient reports no prior inpatient psychiatric admissions. The patient denies any current outpatient psychiatric follow-up. Patient denies any history of suicide attempts in the past. PAST MEDICAL HISTORY: Past Medical History: Cancer, COPD, Myocardial Infarction ([place]), Osteoarthritis (OA) Past Surgical History: Heart Catheterization With Stent Past Psychological History: Anxiety, Depression Smoking Status: Current every day smoker Past Alcohol Use History: Abuse Past Drug Use History: None Reported ALLERGIES: NO KNOWN DRUG ALLERGIES CHEMICAL DEPENDENCY HISTORY: as per HPI. FAMILY PSYCHIATRIC/SUBSTANCE USE HISTORY: The patient reports unspecified mental illness for her sisters. SOCIAL HISTORY: Patient was born and raised in [place], [place]. The patient currently lives with her sponsor for [employer]. She has an associates degree. 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 She is after been for 8 years. They when she was 30 years old. MENTAL STATUS EXAM: General Appearance: Patient appears to be stated age is alert and cooperative. Patient appears to have slightly disheveled hygiene and grooming wearing hospital gown with fair eye contact. Behavior: Patient is calmly lying in bed without any agitated behavior. Speech: Patient's speech is fluent and nonpressured. Mood/Affect: Patient reports their mood is "depressed", affect is congruent and withdrawn Suicidality/Homicidality: Patient is not reporting any suicidal or homicidal ideation, intention, and/or plan. Perceptions: Patient denies any visual hallucinations and denies any auditory hallucinations Though content/process: There is no evidence of any delusional thought content and thought process is linear and goal-directed. Memory and concentration: AOX3, grossly intact for the purposes of this session. Can spell "WORLD" backwards Judgment and insight: Fair IMPRESSIONS: Aalcohol-induced depressive disorder; rule out major depressive disorder Alcohol use disorder Acute alcohol withdrawal PLAN: -Continue medical management for alcohol withdrawal -At this time patient DOES NOT meet criteria for inpatient psychiatric admission. The patient is currently not endorsing any suicidal or homicidal ideation, intention, and/or plan. Primary diagnosis is substance related as the patient's onset of depressive symptoms started after the relapse to alcohol. The patient is future and goal oriented and expresses desire to go to inpatient substance abuse rehabilitation once stabilized medically. -Would recommend the following medication changes/additions: Continue the patient's home medication of Prozac 80 mg by mouth at bedtime for depression/anxiety. The patient reports that she is familiar with this medication with like to continue this medication rather than traveling something different. We will augment the patient's Prozac with Seroquel 25 mg at bedtime. Agree with Librium 25 mg by mouth 3 times a day for alcohol withdrawal -Patient does not require one-to-one sitter. -Approximately 20 minutes was spent providing the patient with motivational interviewing and supportive psychotherapy. -Psychiatry will follow. However, the patient is psychiatrically cleared for discharge back to rehab once withdrawal is treated. 03/12/23 15:07
--- NOTE | 2023-03-12 19:12 | P.PN ---
Subjective Progress Note Date: 03/12/23 Hospital course: Patient is a very pleasant 57-year-old male currently undergoing hormone replacement to transition to a female along with past medical history of CAD with stent, anxiety, depression, and nicotine dependence.. Pt was sent to the emergency department from [place] secondary to alcohol withdrawal and concerns for previous reported suicidal ideations. 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 Urinalysis negative for infection. Serum alcohol level < 10. patient admitted under our services with consultation to psychiatry. Patient currently denying having suicidal or homicidal ideations and denies h aving any hallucinations at this time. Physical exam: Vital signs reviewed and stable. General: Nontoxic, no distress and appears stated age. Derm: Skin warm and dry, normal coloration for ethnicity. Head: Atraumatic, normocephalic and symmetric. Eyes: EOMs intact, no lid lag, and anicteric sclera Mouth: no lip lesions, mucus membranes moist Cardiovascular: regular rate and rhythm with normal S1S2, no murmur, positive posterior tibial pulses bilaterally, and cap refill < 2 seconds. Lungs: Respirations even, regular, and unlabored on room air. Lungs CTA bilaterally, no rhonchi, no rales, no wheezing, and no accessory muscle usage. Abdominal: soft, nontender to palpation, no guarding, no appreciable organomegaly Ext: ROM intact. No gross muscle atrophy, no edema, no contractures Neuro: Speech clear, face symmetrical and CN II-XII grossly intact with no noted focal neuro deficits Psych: Alert and oriented to person, place, time, and situation. Appropriate and pleasant affect. 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 Pt has received 4 mg of Ativan ovrnight. -Continuous IV hydration. -Thiamine 100 mg twice a day -Multivitamin daily -Folate 1 mg daily -Seizure, fall, aspiration, and elopement precautions in place. -Urine drug screen -Continued close monitoring of electrolytes and replace as needed. -Telemetry monitoring. -Suicide precuations and consult to psychiatry. CODE STATUS: Full code DVT prophylaxis:Heparin Discussed with: Pt and RN Anticipated discharge date: Clinical course to determine Anticipated discharge place: Home Patient was seen independently by Nurse Pracitioner. This document was prepared using [employer] dictation software. Please allow for errors in club former, while rare they do occur. Objective - Vital Signs Vital signs: Vital Signs Temp 98.5 F 03/12/23 07:13 Pulse 84 03/12/23 07:13 Resp 18 03/12/23 07:13 BP 114/67 03/12/23 07:13 Pulse Ox 99 03/12/23 07:13 FiO2 Intake & Output 03/11/23 03/12/23 03/12/23 18:59 06:59 18:59 Weight 68.039 kg Other: Voiding Method Toilet Urinal # Voids 1 1 # Bowel Movements 0 - Labs CBC & Chem 7: 03/11/23 20:29 03/11/23 20:29 Labs: Abnormal Lab Results - Last 24 Hours (Table) 03/11/23 03/11/23 03/11/23 Range/Units 20:29 20:29 20:29 MCV 102.3 H (80.0-100.0) fL Sodium 133 L (137-145) mmol/L Glucose 100 H (74-99) mg/dL Urine Protein Trace H (Negative) Ur Leukocyte Esterase Trace H (Negative) Urine Bacteria Rare H (None) /hpf Urine Mucus Moderate H (None) /hpf
[2023-03-12] MEDS: traZODone HCL 50 MG TAB PO SCH (20:21)
[2023-03-12] MEDS: FLUoxetine HCL 20 MG CAP PO SCH (20:21)
[2023-03-12] MEDS: QUEtiapine 25 MG TAB PO SCH (20:22)
[2023-03-12] MEDS ORDERED: NON FORMULARY DRUG (Fluoxetine Hcl [Prozac] 40 MG Capsule) PO SCH (21:00)
[2023-03-13] MEDS: SODIUM CHLORIDE 0.9% 1,000 ML IV SCH (06:01)
[2023-03-13 06:11] LABS: African American GFR (CKD) >90 (>60 ml/min/1.73 sqM); Anion Gap 8 mmol/L; Blood Urea Nitrogen 12 mg/dL (7-17); Calcium 8.6 mg/dL (8.4-10.2); Carbon Dioxide 26 mmol/L (22-30); Chloride 103 mmol/L (98-107); Glucose 89 mg/dL (74-99); Non-African American GFR(CKD) >90 (>60 ml/min/1.73 sqM); Sodium 137 mmol/L (137-145)
[2023-03-13] MEDS: THIAMINE 100 MG TAB PO SCH (08:01)
[2023-03-13] MEDS: HEPARIN SODIUM,PORCINE/PF 5,000 UNIT/0.5 ML SYRINGE SQ SCH ×2 (08:01→16:05)
[2023-03-13] MEDS: chlordiazePOXIDE 25 MG CAP PO SCH ×3 (08:01→21:26)
[2023-03-13] MEDS: LORazepam 1 MG TAB PO PRN (13:20)
--- NOTE | 2023-03-13 13:45 | P.PN ---
Subjective Progress Note Date: 03/13/23 Hospital course: Patient is a very pleasant 57-year-old currently undergoing hormone replacement to transition to a female along with past medical history of CAD with stent, anxiety, depression, and nicotine dependence.. Pt was sent to the emergency department from [place] secondary to alcohol withdrawal and concerns for previous reported suicidal ideations. 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 Urinalysis negative for infection. Serum alcohol level < 10. patient admitted under our services with consultation to psychiatry. Patient currently denying having suicidal or homicidal ideations and denies having any hallucinations at this time. Physical exam: Patient seen and fully evaluated at the bedside. Patient very anxious and tearful. CIWA score 10 at this time. Vital signs reviewed and stable. General: Nontoxic, no distress and appears stated age. Derm: Skin warm and dry, normal coloration for ethnicity. Head: Atraumatic, normocephalic and symmetric. Eyes: EOMs intact, no lid lag, and anicteric sclera Mouth: no lip lesions, mucus membranes moist Cardiovascular: regular rate and rhythm with normal S1S2, no murmur, positive posterior tibial pulses bilaterally, and cap refill < 2 seconds. Lungs: Respirations even, regular, and unlabored on room air. Lungs CTA bilaterally, no rhonchi, no rales, no wheezing, and no accessory muscle usage. Abdominal: soft, nontender to palpation, no guarding, no appreciable organomegaly Ext: ROM intact. No gross muscle atrophy, no edema, no contractures Neuro: Speech clear, face symmetrical and CN II-XII grossly intact with no noted focal neuro deficits Psych: Alert and oriented to person, place, time, and situation. Appropriate and pleasant affect. 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 BMP unremarkable with resolution of hyponatremia from 133 now 137 and stable electrolytes. -Continue monitoring of CIWA scores and patient to be medicated with Ativan 0.5 mg every 4 hours as needed for CIWA score of 4-5, Ativan 1 mg every 4 hours for CIWA score of 6-7, Ativan 2 mg every 3 hours CIWA score of 8-9, and Ativan 2 mg every 2 hours forr CIWA score of 10 or greater. Current CIWA score 10. -Continuous IV hydration. -Thiamine 100 mg twice a day -Multivitamin daily -Folate 1 mg daily -Seizure, fall, aspiration, and elopement precautions in place. -Continued close monitoring of electrolytes and replace as needed. -Psychiatry following and review documentation in chart. CODE STATUS: Full code DVT prophylaxis:Heparin Discussed with: Pt and RN Anticipated discharge date: Clinical course to determine Anticipated discharge place: Home Patient was seen independently by Nurse Pracitioner. This document was prepared using [employer] dictation software. Please allow for errors in rn pediatric, while rare they do occur. Objective - Vital Signs Vital signs: Vital Signs Temp 98.2 F 03/13/23 07:44 Pulse 70 03/13/23 07:44 Resp 14 03/13/23 07:44 BP 126/78 03/13/23 07:44 Pulse Ox 98 03/13/23 07:44 FiO2 Intake & Output 03/12/23 03/13/23 03/13/23 18:59 06:59 18:59 Intake Total 1560 120 Output Total 500 1550 Balance 1060 -1550 120 Intake: Intake, IV Titration 1560 Amount Sodium Chloride 0.9% 1, 1560 000 ml @ 130 mls/hr IV . Q7H42M [facility] Rx#:[id number] Oral 120 Output: Urine 500 1550 Other: Voiding Method Toilet Urinal # Voids 2 2 - Labs CBC & Chem 7: 03/11/23 20:29 03/13/23 05:50
[2023-03-13] MEDS: LORazepam 2 MG/ML INJ IV PRN ×2 (14:21→18:27)
[2023-03-13] MEDS ORDERED: ESTRADIOL CYPIONATE 5 MG/ML IM SCH (15:00)
[2023-03-13] MEDS: QUEtiapine 25 MG TAB PO SCH (21:26)
[2023-03-13] MEDS: FLUoxetine HCL 20 MG CAP PO SCH (21:26)
[2023-03-13] MEDS: traZODone HCL 50 MG TAB PO SCH (21:26)
[2023-03-13] MEDS: NICOTINE 14MG/24HR PATCH TRANSDERM SCH (21:26)
[2023-03-14] MEDS: HEPARIN SODIUM,PORCINE/PF 5,000 UNIT/0.5 ML SYRINGE SQ SCH ×4 (00:31→23:28)
[2023-03-14] MEDS: LORazepam 2 MG/ML INJ IV PRN ×6 (00:33→23:28)
[2023-03-14] MEDS: NICOTINE 14MG/24HR PATCH TRANSDERM SCH (08:15)
[2023-03-14] MEDS: chlordiazePOXIDE 25 MG CAP PO SCH ×3 (08:15→21:28)
[2023-03-14] MEDS: THIAMINE 100 MG TAB PO SCH (08:15)
--- NOTE | 2023-03-14 18:27 | P.PN ---
Subjective Progress Note Date: 03/14/23 Hospital course: Patient is a very pleasant 57-year-old currently undergoing hormone replacement to transition to a female along with past medical history of CAD with stent, anxiety, depression, and nicotine dependence.. Pt was sent to the emergency department from [facility] secondary to alcohol withdrawal and concerns for previous reported suicidal ideations. 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 Urinalysis negative for infection. Serum alcohol level < 10. patient admitted under our services with consultation to psychiatry. Patient currently denying having suicidal or homicidal ideations and denies having any hallucinations at this time. Physical exam: Patient seen and fully evaluated at the bedside. Patient appears less anxious at this time. She received her Estradiol hormone injection yesterday afternoon. She remains on scheduled Librium 25 mg twice a day and has had a total of 2 mg of additional Ativan administered over the past 24 hours. Plan is for patient to return to [facility] inpatient drug and alcohol rehab. RN making attempts to contact staff at this time. However she reports having a difficult time getting a hold of staff at facility secondary to holiday weekend. Vital signs reviewed and stable. General: Nontoxic, no distress and appears stated age. Derm: Skin warm and dry, normal coloration for ethnicity. Head: Atraumatic, normocephalic and symmetric. Eyes: EOMs intact, no lid lag, and anicteric sclera Mouth: no lip lesions, mucus membranes moist Cardiovascular: regular rate and rhythm with normal S1S2, no murmur, positive posterior tibial pulses bilaterally, and cap refill < 2 seconds. Lungs: Respirations even, regular, and unlabored on room air. Lungs CTA bilaterally, no rhonchi, no rales, no wheezing, and no accessory muscle usage. Abdominal: soft, nontender to palpation, no guarding, no appreciable organomegaly Ext: ROM intact. No gross muscle atrophy, no edema, no contractures Neuro: Speech clear, face symmetrical and CN II-XII grossly intact with no noted focal neuro deficits Psych: Alert and oriented to person, place, time, and situation. Appropriate and pleasant affect. 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 BMP unremarkable with resolution of hyponatremia from 133 now 137 and stable electrolytes. -Continue monitoring of CIWA scores and patient to be medicated with Ativan 0.5 mg every 4 hours as needed for CIWA score of 4-5, Ativan 1 mg every 4 hours for CIWA score of 6-7, Ativan 2 mg every 3 hours CIWA score of 8-9, and Ativan 2 mg every 2 hours forr CIWA score of 10 or greater. patient to remain on scheduled Librium 25 mg twice a day and has had a total of 2 mg of additional Ativan administered over the past 24 hours. Plan is for patient to return to [facility] drug and alcohol rehab. RN making attempts to contact staff at this time. However she reports having a difficult time getting a hold of staff at facility secondary to holiday weekend. -Continuous IV hydration. -Thiamine 100 mg twice a day -Multivitamin daily -Folate 1 mg daily -Seizure, fall, aspiration, and elopement precautions in place. -Continued close monitoring of electrolytes and replace as needed. -Psychiatry following and review documentation in chart. CODE STATUS: Full code DVT prophylaxis:Heparin Discussed with: Pt and RN Anticipated discharge date: Patient medically stable for discharge at this time however we remain unable to get ahold of staff at facility. Anticipated discharge place: Home Patient was seen independently by Nurse Pracitioner. This document was prepared using [employer] dictation software. Please allow for errors in brush clearing laborer, while rare they do occur. Ricki Ayers NP rendered care for this patient independently, reviewed the findings and plan as documented in the note above. I did not physically speak with or examine the patient on this date. Objective - Vital Signs Vital signs: Vital Signs Temp 98.1 F 03/14/23 02:51 Pulse 66 03/14/23 02:51 Resp 16 03/14/23 02:51 BP 98/62 03/14/23 02:51 Pulse Ox 99 03/14/23 02:51 FiO2 Intake & Output 03/13/23 03/14/23 03/14/23 18:59 06:59 18:59 Intake Total 1530 Output Total 925 Balance 605 Intake: Intake, IV Titration 1170 Amount Sodium Chloride 0.9% 1, 1170 000 ml @ 130 mls/hr IV . Q7H42M [facility] Rx#:[id number] Oral 360 Output: Urine 925 Other: Voiding Method Toilet Urinal # Voids 2 - Labs CBC & Chem 7: 03/11/23 20:29 03/13/23 05:50
[2023-03-14] MEDS: ACETAMINOPHEN TAB 325 MG TAB PO PRN (19:26)
[2023-03-14] MEDS: FLUoxetine HCL 20 MG CAP PO SCH (21:28)
[2023-03-14] MEDS: QUEtiapine 25 MG TAB PO SCH (21:28)
[2023-03-14] MEDS: traZODone HCL 50 MG TAB PO SCH (21:28)
[2023-03-15] MEDS: THIAMINE 100 MG TAB PO SCH (08:57)
[2023-03-15] MEDS: HEPARIN SODIUM,PORCINE/PF 5,000 UNIT/0.5 ML SYRINGE SQ SCH (08:57)
[2023-03-15] MEDS: chlordiazePOXIDE 25 MG CAP PO SCH (08:57)
[2023-03-15] MEDS: NICOTINE 14MG/24HR PATCH TRANSDERM SCH (08:57)
[2023-03-15] MEDS: LORazepam 1 MG TAB PO PRN ×3 (09:01→14:46)
--- NOTE | 2023-03-15 09:51 | P.DS ---
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 Patient's CIWA score is 3. Patient is anxious regarding discharge today. It is unclear whether or not patient will be accepted back to [facility]. Per RN patient may need to go back through readmission process and schedule a date. This could take 10-15 days. Medically, patient is stable for discharge at this time. Patient was advised that she will be discharged and may not be able to go back to [facility] and would have to make other arrangements. Patient strongly encouraged to avoid any and all alcohol use. Reports of suicidal ideations, upon arrival to our facility there were reports that patient previously expressed suicidal ideations. Patient denied throughout hospitalization. She was evaluated by psychiatry clearing patient from psychiatric standpoint stating patient does not meet criteria for inpatient admission and recommended starting patient on Seroquel 25 mg nightly in addition to current dose of Prozac 80 mg nightly. Anxiety and depression. Patient evaluated by psychiatry and was started on Seroquel 25 mg nightly in addition to continuation of current home medication with Prozac 80 mg nightly. Hyponatremia, resolved Hospital Course: Patient is a very pleasant 57-year-old currently undergoing hormone replacement to transition to a female along with past medical history of CAD with stent, anxiety, depression, and nicotine dependence.. Pt was sent to the emergency department on 03/11/23 from [facility] secondary to alcohol withdrawal and concerns for previous reported suicidal ideations. 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 Patient underwent full evaluation in the emergency department CBC and CMP showing no significant abnormalities. Urinalysis negative for infection. Serum alcohol level < 10. patient admitted under our services with consultation to psychiatry. Patient denied having suicidal or homicidal ideations and denied having any hallucinations at this time. Patient was placed on CIWA protocol with symptom triggered medication management with benzodiazepines. She was evaluated by psychiatry and was cleared from psychiatric standpoint, stating patient does not meet criteria for inpatient admission and recommended starting patient on Seroquel 25 mg nightly in addition to current dose of Prozac 80 mg nightly. Patient hasn't required minimal benzodiazepine replacement for alcohol withdrawal. Medically, patient is stable showing no signs of acute distress. Patient was initially to be discharged yesterday back to [facility], however RN was unable to get of [facility] for discharge patient was held an additional day. It is unclear whether or not patient will be accepted back to [facility]. Per RN patient may need to go back through the readmission process and schedule a date for admission to [facility]. This could take up to 10-15 days. Medically, patient is stable for discharge at this time and cannot be held in the hospital while awaiting admission for inpatient drug and alcohol rehabilitation facility. Patient was advised that she will be discharged and may not be able to go back to [facility] and would have to make other arrangements. Patient is anxious regarding this discharge but was strongly encouraged to avoid any and all alcohol use. Physical exam: Patient seen and fully evaluated at the bedside. She appeared to be resting comfortably and easily awoken via verbal stimuli. Patient currently denied having any complaints or concerns. She was updated on plan for discharge and became slightly anxious. Patient is being discharged, however it is unclear of whether or not patient will be accepted back to [facility] and may need to make arrangements for readmission. RN calling facility at this time. Vital signs reviewed and stable. General: Nontoxic, no distress and appears stated age. Derm: Skin warm and dry, normal coloration for ethnicity. Head: Atraumatic, normocephalic and symmetric. Eyes: EOMs intact, no lid lag, and anicteric sclera Mouth: no lip lesions, mucus membranes moist Cardiovascular: regular rate and rhythm with normal S1S2, no murmur, positive posterior tibial pulses bilaterally, and cap refill < 2 seconds. Lungs: Respirations even, regular, and unlabored on room air. Lungs CTA bilaterally, no rhonchi, no rales, no wheezing, and no accessory muscle usage. Abdominal: soft, nontender to palpation, no guarding, no appreciable organomegaly Ext: ROM intact. No gross muscle atrophy, no edema, no contractures Neuro: Speech clear, face symmetrical and CN II-XII grossly intact with no noted focal neuro deficits Psych: Alert and oriented to person, place, time, and situation. Appropriate and pleasant affect. A total of 31 minutes of time were spent preparing this complex discharge summary. Pt was discharged on 03/15/23 at 9:49 AM. Patient was seen independently by Nurse Practitioner. This document was prepared using [employer] dictation software. Please allow for errors in estimator and drafter while rare they do occur. Ricki Ayers NP rendered care for this patient independently, reviewed the findings and plan as documented in the note above. I did not physically speak with or examine the patient on this date. Patient Condition at Discharge: Stable Plan - Discharge Summary New Discharge Prescriptions: New QUEtiapine [SEROquel] 25 mg PO HS 30 Days #30 tab Continue FLUoxetine HCL [PROzac] 80 mg PO HS traZODone HCL 150 mg PO HS Albuterol Inhaler [Ventolin Hfa Inhaler] 2 puff INHALATION RT-Q4H PRN PRN Reason: Shortness Of Breath Estradiol Valerate 20 Mg/Ml 5 mg IM DIRECTED Discharge Medication List Albuterol Inhaler [Ventolin Hfa Inhaler] 2 puff INHALATION RT-Q4H PRN 03/05/23 [History] Estradiol Valerate 20 Mg/Ml 5 mg IM DIRECTED 03/05/23 [History] FLUoxetine HCL [PROzac] 80 mg PO HS 03/05/23 [History] traZODone HCL 150 mg PO HS 03/05/23 [History] QUEtiapine [SEROquel] 25 mg PO HS 30 Days #30 tab 03/15/23 [Rx] Follow up Appointment(s)/Referral(s): Adam Cook DO [Primary Care Provider] - 1-2 days (Patient instructed to make follow-up appointment) Patient Instructions/Handouts: Quetiapine (By mouth), Depression (DC), Alcohol Intoxication (DC), Abuse of Alcohol (DC), Anxiety (GEN) Discharge/Stand Alone Forms: Inp Substance Abuse Facilities Discharge Disposition: HOME SELF-CARE
[2023-03-15 11:43] VITALS: BP 98/64; PULSE 78; RESP 16; TEMP 97.7
[2023-03-19] MEDS ORDERED: ESTRADIOL VALERATE IM SCH (09:00)
== END 2023-03-15 15:28 | disposition home or self-care (01) ==
LOC: EC 19:28 → MERGE 21:20 → 5NMEDONC 21:20
PROVIDERS: ADMIT Internal Medicine; ATTEND Internal Medicine
DX: F10.239 Alcohol dependence with withdrawal, unspecified (principal); E87.1 Hypo-osmolality and hyponatremia; D75.89 Other specified diseases of blood and blood-forming organs; F10.24 Alcohol dependence with alcohol-induced mood disorder; F32.A Depression, unspecified; F41.9 Anxiety disorder, unspecified; R45.851 Suicidal ideations; I25.10 Atherosclerotic heart disease of native coronary artery without angina pectoris; J44.9 Chronic obstructive pulmonary disease, unspecified; I25.2 Old myocardial infarction; Y90.0 Blood alcohol level of less than 20 mg/100 ml; M19.90 Unspecified osteoarthritis, unspecified site; F17.210 Nicotine dependence, cigarettes, uncomplicated; F64.0 Transsexualism; Z79.890 Hormone replacement therapy; Z95.5 Presence of coronary angioplasty implant and graft; Z85.9 Personal history of malignant neoplasm, unspecified; Z86.69 Personal history of other diseases of the nervous system and sense organs; Z81.8 Family history of other mental and behavioral disorders
CPT/HCPCS: 96376 ×3; 96361 ×2; 96366 ×3; 96372 ×4; 96365; 96375; 99284; 36415; 82747; 80053; 80048; 82607; 83690; 85025; 81001; G0378 ×5; G0480; S4990 ×3; J2060 ×3; J1000; J3411 ×2; J2405; J1644 ×4; 80320; 83735; 85027

== ENCOUNTER 2023-05-07 12:04 | Inpatient (IN) | payer OTHER ==
[2023-05-07 12:55] LABS: Basophils # (A) 0.1 k/uL (0-0.2); Basophils % (A) 1 %; Eosinophils # (A) 0.1 k/uL (0-0.7); Eosinophils % (A) 1 %; HCT 40.5 % (34.0-46.0); HGB 14.4 gm/dL (11.4-16.0); Lymphocytes # (A) 1.1 k/uL (1.0-4.8); Lymphocytes % (A) 15 %; MCH 35.9 pg (25.0-35.0); MCHC 35.5 g/dL (31.0-37.0); MCV 101.1 fL (80.0-100.0); Mean Platelet Volume 7.3; Monocytes # (A) 0.7 k/uL (0-1.0); Monocytes % (A) 9 %; Neutrophils # (A) 5.4 k/uL (1.3-7.7); Neutrophils % (A) 72 %; Platelet Count 245 k/uL (150-450); RBC 4.01 m/uL (3.80-5.40); RDW 12.9 % (11.5-15.5); WBC 7.5 k/uL (3.8-10.6)
[2023-05-07 13:12] LABS: ALT 22 U/L (4-34); African American GFR (CKD) >90 (>60 ml/min/1.73 sqM); Anion Gap 11 mmol/L; Blood Urea Nitrogen 12 mg/dL (7-17); Calcium 7.7 mg/dL (8.4-10.2); Carbon Dioxide 21 mmol/L (22-30); Chloride 103 mmol/L (98-107); Glucose 102 mg/dL (74-99); Non-African American GFR(CKD) >90 (>60 ml/min/1.73 sqM); Sodium 135 mmol/L (137-145); Total Bilirubin 0.4 mg/dL (0.2-1.3); Total Protein 6.8 g/dL (6.3-8.2)
[2023-05-07 13:14] LABS: AST 73 U/L (14-36); Albumin 3.6 g/dL (3.5-5.0); Alkaline Phosphatase 70 U/L (38-126)
[2023-05-07 13:55] LABS: Alcohol 354 mg/dL
[2023-05-07] MEDS ORDERED: NALOXONE 0.4 MG/ML 1 ML VIAL IV PRN (13:56)
--- NOTE | 2023-05-07 13:56 | ED ---
Alcohol HPI - General Chief Complaint: Alcohol Stated Complaint: ETOH Time Seen by Provider: 05/07/23 12:10 Source: patient, EMS Mode of arrival: EMS Limitations: altered mental status - History of Present Illness Initial Comments: 57-year-old presents to the emergency department from [place]. It was reported that the patient walked into [place] without an appointment and was grossly intoxicated. She blew a 0.19. They could not accommodate the patient and therefore called for EMS to transport the patient to the hospital. Upon arrival here she does admit to drinking today but cannot tell me how much. Admits to suicidal ideations. Patient extremely poor historian. - Related Data Home Medications Medication Instructions Recorded Confirmed Albuterol Inhaler [Ventolin Hfa 2 puff INHALATION RT-Q4H PRN 03/05/23 05/07/23 Inhaler] Estradiol Valerate 20 Mg/Ml 5 mg IM Q3D 03/05/23 05/07/23 FLUoxetine HCL [PROzac] 80 mg PO HS 03/05/23 05/07/23 traZODone HCL 150 mg PO HS 03/05/23 05/07/23 Nicotine 21Mg/24Hr Patch [Habitrol] 1 patch TRANSDERM DAILY 05/07/23 05/07/23 Progesterone, Micronized 400 mg PO HS 05/07/23 05/07/23 [Progesterone] Allergies Allergy/AdvReac Type Severity Reaction Status Date / Time No Known Allergies Allergy Verified 05/07/23 15:29 Review of Systems ROS Statement: Those systems with pertinent positive or pertinent negative responses have been documented in the HPI. ROS Other: All systems not noted in ROS Statement are negative. Past Medical History Past Medical History: Cancer, COPD, Myocardial Infarction ([place]), Osteoarthritis ([place]) Additional Past Medical History / Comment(s): Prostate cancer at 50 yo Last Myocardial Infarction Date:: 2012 History of Any Multi-Drug Resistant Organisms: None Reported Past Surgical History: Heart Catheterization With Stent Additional Past Surgical History / Comment(s): heart catheter with stent x 2; prostatectomy Past Anesthesia/Blood Transfusion Reactions: No Reported Reaction Date of Last Stent Placement:: 2012 Past Psychological History: Anxiety, Depression Smoking Status: Current every day smoker Past Alcohol Use History: Abuse, Heavy General Exam Limitations: altered mental status General appearance: alert, appears intoxicated, anxious Head exam: Present: atraumatic, normocephalic, normal inspection Eye exam: Present: normal appearance, PERRL, EOMI. Absent: scleral icterus, conjunctival injection, periorbital swelling ENT exam: Present: normal exam, mucous membranes moist Neck exam: Present: normal inspection. Absent: tenderness, meningismus, lymphadenopathy Respiratory exam: Present: normal lung sounds bilaterally. Absent: respiratory distress, wheezes, rales, rhonchi, stridor Cardiovascular Exam: Present: regular rate, normal rhythm, normal heart sounds. Absent: systolic murmur, diastolic murmur, rubs, gallop, clicks GI/Abdominal exam: Present: soft, normal bowel sounds. Absent: distended, tenderness, guarding, rebound, rigid Extremities exam: Present: normal inspection, full ROM, normal capillary refill. Absent: tenderness, pedal edema, joint swelling, calf tenderness Back exam: Present: normal inspection Neurological exam: Present: alert, oriented X3, CN II-XII intact Psychiatric exam: Present: normal affect, normal mood Skin exam: Present: warm, dry, intact, normal color. Absent: rash Course Vital Signs 05/07/23 05/07/23 05/07/23 12:08 19:29 19:48 Temperature 97.4 F L 97.9 F Pulse Rate 67 85 Pulse Rate [ 72 Pulse Oximetery ] Respiratory 18 18 17 Rate Blood Pressure 113/66 104/68 Blood Pressure 125/66 [Left Arm] O2 Sat by Pulse 92 L 95 97 Oximetry Medical Decision Making - Medical Decision Making Was pt. sent in by a medical professional or institution (, PA, RAILROAD FIRER/FIREMAN, urgent care, hospital, or fdc...) When possible be specific @ -[place] Did you speak to anyone other than the patient for history (EMS, parent, family, police, friend...)? What history was obtained from this source @ -EMS provides history Did you review nursing and triage notes (agree or disagree)? Why? @ -I reviewed and agree with nursing and triage notes Were old charts reviewed (outside hosp., previous admission, EMS record, old EKG, old radiological studies, urgent care reports/EKG's, fdc records)? Report findings @ -No old charts were reviewed Differential Diagnosis (chest pain, altered mental status, abdominal pain women, abdominal pain men, vaginal bleeding, weakness, fever, dyspnea, syncope, headache, dizziness, GI bleed, back pain, seizure, CVA, palpatations, mental health, musculoskeletal)? @ -Differential Mental Health Depression, anxiety, bipolar, psychosis, schizophrenia, borderline personality, situational depression, adjustment disorder, behavioral disorder, brain tumor, malingering, substance abuse, encephalopathy, medication reaction, dementia, hypothyroidism, degenerative neurologic disorder, lupus.... This is not meant to be all-inclusive list EKG interpreted by me (3pts min.). @ -Not completed X-rays interpreted by me (1pt min.). @ -None done CT interpreted by me (1pt min.). @ -None done U/S interpreted by me (1pt. min.). @ -None done What testing was considered but not performed or refused? (CT, X-rays, U/S, labs)? Why? @ -None What meds were considered but not given or refused? Why? @ -None Did you discuss the management of the patient with other professionals (professionals i.e. , PA, RAILROAD FIRER/FIREMAN, lab, RT, psych nurse, director social, chocolate refining roller, teacher, probation officer, child support case officer)? Give summary @ -Spoke with Dr. Vanegas who will admit the patient Was smoking cessation discussed for >3mins.? @ -No Was critical care preformed (if so, how long)? @ -No Were there social determinants of health that impacted care today? How? (Homelessness, low income, unemployed, alcoholism, drug addiction, transportation, low edu. Level, literacy, decrease access to med. care, skilled nursing, rehab)? @ -Homelessness, alcoholism, patient attempting to go to rehab Was there de-escalation of care discussed even if they declined (Discuss DNR or withdrawal of care, Hospice)? DNR status @ -No What co-morbidities impacted this encounter? (DM, HTN, Smoking, COPD, CAD, Cancer, CVA, ARF, Chemo, Hep., AIDS, mental health diagnosis, sleep apnea, morbid obesity)? @ -Alcoholism Was patient admitted / discharged? Hospital course, mention meds given and route, prescriptions, significant lab abnormalities, going to OR and other pertinent info. @ -Upon arrival the patient was placed into room 10. Thorough history and physical exam was performed. She does admit to alcohol intoxication and suicidal ideations. Requesting to go back to [place] and does not know why she is here. She was agreeable to workup. Lab studies are conducted and alcohol does come back at 354. Patient does qualify for admission. Will need psychiatric evaluation once sober. Spoke with Dr. Liriano who will admit patient Undiagnosed new problem with uncertain prognosis? @ -No Drug Therapy requiring intensive monitoring for toxicity (Heparin, Nitro, Insulin, Cardizem)? @ -No Were any procedures done? @ -No Diagnosis/symptom? @Acute alcohol intoxication, acute depression with suicidal ideation Acute, or Chronic, or Acute on Chronic? @ -Acute Uncomplicated (without systemic symptoms) or Complicated (systemic symptoms)? @ -Complicated Side effects of treatment? @ -No Exacerbation, Progression, or Severe Exacerbation? @ -No Poses a threat to life or bodily function? How? (Chest pain, [place], [place], pneumonia, PE, COPD, DKA, ARF, appy, cholecystitis, CVA, Diverticulitis, Homicidal, Suicidal, threat to staff... and all critical care pts) @ -Patient endorses suicidal ideations - Lab Data Result diagrams: 05/08/23 06:18 05/08/23 06:18 Lab Results 05/07/23 05/07/23 Range/Units 12:36 12:36 WBC 7.5 (3.8-10.6) k/uL RBC 4.01 (3.80-5.40) m/uL Hgb 14.4 (11.4-16.0) gm/dL Hct 40.5 (34.0-46.0) % MCV 101.1 H (80.0-100.0) fL MCH 35.9 H (25.0-35.0) pg MCHC 35.5 (31.0-37.0) g/dL RDW 12.9 (11.5-15.5) % Plt Count 245 (150-450) k/uL MPV 7.3 Neutrophils % 72 % Lymphocytes % 15 % Monocytes % 9 % Eosinophils % 1 % Basophils % 1 % Neutrophils # 5.4 (1.3-7.7) k/uL Lymphocytes # 1.1 (1.0-4.8) k/uL Monocytes # 0.7 (0-1.0) k/uL Eosinophils # 0.1 (0-0.7) k/uL Basophils # 0.1 (0-0.2) k/uL Sodium 135 L (137-145) mmol/L Potassium 5.0 (3.5-5.1) mmol/L Chloride 103 (98-107) mmol/L Carbon Dioxide 21 L (22-30) mmol/L Anion Gap 11 mmol/L BUN 12 (7-17) mg/dL Creatinine 0.62 (0.52-1.04) mg/dL Est GFR (CKD-EPI)AfAm >90 (>60 ml/min/1.73 sqM) Est GFR (CKD-EPI)NonAf >90 (>60 ml/min/1.73 sqM) Glucose 102 H (74-99) mg/dL Calcium 7.7 L (8.4-10.2) mg/dL Total Bilirubin 0.4 (0.2-1.3) mg/dL AST 73 H (14-36) U/L ALT 22 (4-34) U/L Alkaline Phosphatase 70 (38-126) U/L Total Protein 6.8 (6.3-8.2) g/dL Albumin 3.6 (3.5-5.0) g/dL Serum Alcohol 354 H* mg/dL Disposition Clinical Impression: Alcoholic intoxication, Depression Disposition: ADMITTED IP TO THIS HOSP Condition: Stable Is patient prescribed a controlled substance at d/c from ED?: No Time of Disposition: 13:56 Decision to Admit Reason: Admit from EC Decision Date: 05/07/23 Decision Time: 13:56
[2023-05-07] MEDS ORDERED: LORazepam 2 MG/ML INJ IV PRN (13:58)
[2023-05-07] MEDS ORDERED: THIAMINE 100 MG/ML 2 ML VIAL IM STA (13:58)
[2023-05-07] MEDS: SODIUM CHLORIDE 0.9% 1,000 ML IV SCH (14:03)
[2023-05-07] MEDS ORDERED: ALBUTEROL NEBULIZED 2.5 MG/3 ML INHALATION PRN (15:45)
[2023-05-07] MEDS: LORazepam 2 MG/ML INJ IV PRN ×3 (16:56→22:01)
[2023-05-07] MEDS: FLUoxetine HCL 20 MG CAP PO SCH (20:09)
[2023-05-07] MEDS: traZODone HCL 50 MG TAB PO SCH (21:42)
[2023-05-07] MEDS: NON FORMULARY DRUG (Progesterone, Micronized [Progesterone] 200 MG Capsule) PO SCH (22:16)
--- NOTE | 2023-05-07 22:51 | HP ---
HISTORY AND PHYSICAL HISTORY OF PRESENT ILLNESS: This 57-year-old is coming to the hospital from [place]. She was grossly intoxicated. They sent her here. Her alcohol levels were well over 200. They could not accommodate her because she was drunk. she was brought to the ER. she was admitted for CIWA protocol. HOME MEDICATIONS: 1. Prozac 80 daily. 2. Trazodone 150 daily. 3. 5 mg IM as directed. 4. Albuterol HFA for breathing issues. REVIEW OF SYSTEMS: A 14-point review of systems otherwise negative. PAST MEDICAL HISTORY: Cancer, COPD, myocardial infarction, osteoarthritis, possibly anxiety depression, alcohol abuse. SOCIAL HISTORY: Current everyday smoker. PAST SURGICAL HISTORY: Possible heart catheterization with stent in the past. Unclear what kind of cancer she has had in the past. she has altered mental status alcohol. she is intoxicated, anxious. PHYSICAL EXAMINATION: HEENT: Normocephalic, atraumatic. Pupils equal, round, reactive. LUNGS: Clear. CARDIOVASCULAR: S1, S2. ABDOMEN: Soft. EXTREMITIES: No cyanosis, clubbing, or edema. NEUROLOGIC: Cranial nerves intact. PSYCH: Fair mood and affect. VITAL SIGNS: Temp 97.4, pulse 67, respiratory rate 16 to 18, blood pressure 113/66, and O2 92. LABORATORY DATA: Sodium 135, potassium 5.0, hemoglobin 14.4, white count 7.5, platelets 245, AST 73, ALT is 22, calcium is 7.77. ASSESSMENT: Alcohol intoxication, depression. CIWA protocol, get psychiatry involved apparently for depression. Continue on CIWA protocol. Give her fluids. Replace electrolytes. Give her thiamine, vitamins, etc. p.r.n. Prognosis guarded. MMODL / IJN: [id number] /
[2023-05-08] MEDS: ESTRADIOL VALERATE IM SCH (08:24)
[2023-05-08] MEDS: LORazepam 2 MG/ML INJ IV PRN ×6 (08:35→22:55)
[2023-05-08] MEDS: THIAMINE 100 MG TAB PO SCH (08:35)
[2023-05-08] MEDS: NICOTINE 21MG/24HR PATCH TRANSDERM SCH (08:35)
[2023-05-08] MEDS: SODIUM CHLORIDE 0.9% 1,000 ML IV SCH ×3 (08:39→12:26)
[2023-05-08 09:28] LABS: Basophils # (A) 0.06 X 10*3/uL (0.00-0.10); Basophils % (A) 0.9 %; Eosinophils # (A) 0.07 X 10*3/uL (0.04-0.35); Eosinophils % (A) 1.1 %; HCT 38.6 % (37.2-46.3); HGB 13.7 d/dL (12.0-15.0); Lymphocytes # (A) 1.47 X 10*3/uL (0.90-5.00); Lymphocytes % (A) 22.3 %; MCH 34.8 pg (27.0-32.0); MCHC 35.5 d/dL (32.0-37.0); Mean Platelet Volume 9.8 FL (9.5-12.2); Monocytes # (A) 0.63 X 10*3/uL (0.20-1.00); Monocytes % (A) 9.6 %; NRBC Per 100 WBC 0 X 10*3/uL (0.00-0.01); Neutrophils # (A) 4.34 X 10*3/uL (1.80-7.70); Neutrophils % (A) 65.9 %; Platelet Count 230 X 10*3/uL (140-440); RBC 3.94 X 10*6/uL (4.10-5.20); RDW 13.2 % (11.5-14.5); WBC 6.58 X 10*3/uL (4.50-10.00)
[2023-05-08 10:05] LABS: ALT 20 U/L (8-44); AST 50 U/L (13-35); Albumin 3.2 d/dL (3.8-4.9); Albumin/Globulin Ratio 1.39 Ratio (1.60-3.17); Alkaline Phosphatase 66 U/L (41-126); BUN/Creat Ratio 17.86 Ratio (12.00-20.00); Blood Urea Nitrogen 12.5 mg/dL (9.0-27.0); Calcium 7.7 mg/dL (8.7-10.3); Carbon Dioxide 21.2 mmol/L (21.6-31.8); Chloride 102 mmol/L (96-109); Globulin 2.3 d/dL (1.6-3.3); Glucose 87 mg/dL (70-110); Sodium 135 mmol/L (135-145); Total Bilirubin 0.3 mg/dL (0.3-1.2); Total Protein 5.5 d/dL (6.2-8.2)
--- NOTE | 2023-05-08 13:55 | P.PN ---
Subjective Progress Note Date: 05/08/23 Patient is a 57-year-old lady sent in from [place] for alcohol detox. Patient alcohol level was over 200. 05/08. Patient seen and examined. Complaining of abdominal pain. Denies any nausea or vomiting. REVIEW OF SYSTEMS: CONSTITUTIONAL: No fever, no malaise,. CARDIOVASCULAR: No chest pain, no palpitations, no syncope. PULMONARY: No shortness of breath, no cough, GASTROINTESTINAL: As mentioned above NEUROLOGICAL: No headaches, no weakness, PHYSICAL EXAMINATION: GENERAL: The patient is alert and oriented x3, not in any acute distress. Well developed, well nourished. HEENT: Pupils are round and equally reacting to light. EOMI. No scleral icterus. No conjunctival pallor. Normocephalic, atraumatic. No pharyngeal erythema. No thyromegaly. CARDIOVASCULAR: S1 and S2 present. No murmurs, rubs, or gallops. PULMONARY: Chest is clear to auscultation, no wheezing or crackles. ABDOMEN: Soft, nontender, nondistended, normoactive bowel sounds. No palpable organomegaly. MUSCULOSKELETAL: No joint swelling or deformity. EXTREMITIES: No cyanosis, clubbing, or pedal edema. NEUROLOGICAL: Gross neurological examination did not reveal any focal deficits. SKIN: No rashes. Assessment and plan Alcohol intoxication Alcohol detox Depression Monitor vital signs Monitor CBC Monitor CMP Continue CIWA protocol Continue thiamine and folic acid Resume home medications consult psychiatry Labs and medication were reviewed.. Continue same treatment. Continue with symptomatic treatment. Resume home medication. Monitor labs and vitals. DVT and GI prophylaxis. Further recommendations as per clinical course of the patient Dictation was produced using [employer] dictation software. please excuse any grammatical, word or spelling errors. Objective - Vital Signs Vital signs: Vital Signs Temp 98.3 F 05/08/23 07:38 Pulse 67 05/08/23 07:38 Resp 15 05/08/23 07:38 BP 142/65 05/08/23 07:38 Pulse Ox 99 05/08/23 07:38 FiO2 Intake & Output 05/07/23 05/08/23 05/08/23 18:59 06:59 18:59 Weight 72.575 kg Other: Voiding Method Toilet Urinal - Labs CBC & Chem 7: 05/08/23 06:18 05/08/23 06:18 Labs: Abnormal Lab Results - Last 24 Hours (Table) 05/07/23 05/07/23 05/08/23 Range/Units 12:36 12:36 06:18 RBC 3.94 L (4.10-5.20) X 10*6/uL MCV 101.1 H 98.0 H (80.0-100.0) fL MCH 35.9 H 34.8 H (25.0-35.0) pg Sodium 135 L (137-145) mmol/L Carbon Dioxide 21 L (22-30) mmol/L Glucose 102 H (74-99) mg/dL Calcium 7.7 L (8.4-10.2) mg/dL AST 73 H (14-36) U/L Serum Alcohol 354 H* mg/dL
[2023-05-08] MEDS: ONDANSETRON 4 MG/2 ML VIAL IVP PRN (17:23)
[2023-05-08] MEDS ORDERED: LORazepam 2 MG/ML INJ IV ONE (17:55)
[2023-05-08] MEDS: NON FORMULARY DRUG (Progesterone, Micronized [Progesterone] 200 MG Capsule) PO SCH (20:42)
[2023-05-08] MEDS: FLUoxetine HCL 20 MG CAP PO SCH (21:36)
[2023-05-08] MEDS: traZODone HCL 50 MG TAB PO SCH (21:37)
[2023-05-09] MEDS: SODIUM CHLORIDE 0.9% 1,000 ML IV SCH ×4 (01:00→21:21)
[2023-05-09] MEDS: LORazepam 2 MG/ML INJ IV PRN ×6 (05:14→19:38)
[2023-05-09] MEDS: THIAMINE 100 MG TAB PO SCH (08:56)
[2023-05-09] MEDS: NICOTINE 21MG/24HR PATCH TRANSDERM SCH (08:56)
[2023-05-09] MEDS: ONDANSETRON 4 MG/2 ML VIAL IVP PRN (13:12)
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
[2023-05-09] MEDS: NALTREXONE HCL 50 MG TAB PO SCH (14:56)
[2023-05-09] MEDS: chlordiazePOXIDE 25 MG CAP PO SCH ×2 (14:56→21:21)
[2023-05-09] MEDS: KETOROLAC 15 MG/ML 1 ML VIAL IVP PRN (16:03)
--- NOTE | 2023-05-09 16:33 | P.PN ---
Subjective Progress Note Date: 05/09/23 Patient is a 57-year-old lady sent in from [place] for alcohol detox. Patient alcohol level was over 200. 7. Patient seen and examined. Complaining of abdominal pain. Denies any nausea or vomiting. . Patient seen and examined. Continues to be on [facility] protocol REVIEW OF SYSTEMS: CONSTITUTIONAL: No fever, no malaise,. CARDIOVASCULAR: No chest pain, no palpitations, no syncope. PULMONARY: No shortness of breath, no cough, GASTROINTESTINAL: As mentioned above NEUROLOGICAL: No headaches, no weakness, PHYSICAL EXAMINATION: GENERAL: The patient is alert and oriented x3, not in any acute distress. Well developed, well nourished. HEENT: Pupils are round and equally reacting to light. EOMI. No scleral icterus. No conjunctival pallor. Normocephalic, atraumatic. No pharyngeal erythema. No thyromegaly. CARDIOVASCULAR: S1 and S2 present. No murmurs, rubs, or gallops. PULMONARY: Chest is clear to auscultation, no wheezing or crackles. ABDOMEN: Soft, nontender, nondistended, normoactive bowel sounds. No palpable organomegaly. MUSCULOSKELETAL: No joint swelling or deformity. EXTREMITIES: No cyanosis, clubbing, or pedal edema. NEUROLOGICAL: Gross neurological examination did not reveal any focal deficits. SKIN: No rashes. Assessment and plan Alcohol intoxication Alcohol detox Depression Monitor vital signs Monitor CBC Monitor CMP Continue [facility] protocol Continue thiamine and folic acid Continue home medications Psychiatric recommended the following Prozac 80 mg qhs for anxiety/mood, increased trazodone 200 mg qhs for insomnia. naltrexone 50 mg daily for etoh cravings. vistaril prn for anxiety. added Librium 25 mg by mouth 3 times a day for alcohol withdrawal Labs and medication were reviewed.. Continue same treatment. Continue with sy mptomatic treatment. Resume home medication. Monitor labs and vitals. DVT and GI prophylaxis. Further recommendations as per clinical course of the patient Dictation was produced using [employer] dictation software. please excuse any grammatical, word or spelling errors. Objective - Vital Signs Vital signs: Vital Signs Temp 97.8 F 05/09/23 06:57 Pulse 55 L 05/09/23 06:57 Resp 17 05/09/23 06:57 BP 111/59 05/09/23 06:57 Pulse Ox 96 05/09/23 06:57 FiO2 Intake & Output 05/08/23 05/09/23 05/09/23 18:59 06:59 18:59 Intake Total 2910 Output Total 1525 800 Balance 1385 -800 Intake: Intake, IV Titration 1560 Amount Sodium Chloride 0.9% 1, 1560 000 ml @ 130 mls/hr IV . Q7H42M [facility] Rx#:[id number] Oral 1350 Output: Urine 1525 800 Other: Voiding Method Urinal Urinal - Labs CBC & Chem 7: 05/08/23 06:18 05/08/23 06:18
[2023-05-09] MEDS ORDERED: KETOROLAC 15 MG/ML 1 ML VIAL IVP SCH (18:00)
[2023-05-09] MEDS: traZODone HCL 100 MG TAB PO SCH (21:21)
[2023-05-09] MEDS: FLUoxetine HCL 20 MG CAP PO SCH (21:21)
[2023-05-09] MEDS: NON FORMULARY DRUG (Progesterone, Micronized [Progesterone] 200 MG Capsule) PO SCH (21:26)
[2023-05-10] MEDS: LORazepam 2 MG/ML INJ IV PRN ×6 (01:50→21:10)
[2023-05-10] MEDS: KETOROLAC 15 MG/ML 1 ML VIAL IVP PRN ×3 (02:41→13:09)
[2023-05-10] MEDS: ONDANSETRON 4 MG/2 ML VIAL IVP PRN (04:24)
[2023-05-10] MEDS: SODIUM CHLORIDE 0.9% 1,000 ML IV SCH ×3 (07:50→20:51)
[2023-05-10] MEDS: chlordiazePOXIDE 25 MG CAP PO SCH ×3 (07:51→21:09)
[2023-05-10] MEDS: NALTREXONE HCL 50 MG TAB PO SCH (07:51)
[2023-05-10] MEDS: THIAMINE 100 MG TAB PO SCH (07:51)
[2023-05-10] MEDS: NICOTINE 21MG/24HR PATCH TRANSDERM SCH (07:51)
[2023-05-10] MEDS: traZODone HCL 100 MG TAB PO SCH (21:09)
[2023-05-10] MEDS: FLUoxetine HCL 20 MG CAP PO SCH (21:10)
[2023-05-10] MEDS: NON FORMULARY DRUG (Progesterone, Micronized [Progesterone] 200 MG Capsule) PO SCH (21:27)
[2023-05-11] MEDS: KETOROLAC 15 MG/ML 1 ML VIAL IVP PRN (01:27)
[2023-05-11] MEDS: SODIUM CHLORIDE 0.9% 1,000 ML IV SCH ×3 (03:52→17:25)
[2023-05-11 07:28] VITALS: RESP 18
[2023-05-11] MEDS: ESTRADIOL VALERATE IM SCH (07:48)
[2023-05-11] MEDS: chlordiazePOXIDE 25 MG CAP PO SCH (09:12)
[2023-05-11] MEDS: NICOTINE 21MG/24HR PATCH TRANSDERM SCH (09:12)
[2023-05-11] MEDS: THIAMINE 100 MG TAB PO SCH (09:12)
[2023-05-11] MEDS: NALTREXONE HCL 50 MG TAB PO SCH (09:12)
[2023-05-11] MEDS: LORazepam 2 MG/ML INJ IV PRN ×3 (10:43→20:27)
--- NOTE | 2023-05-11 13:01 | P.PN ---
Progress Note - Text Progress Note Date: 05/11/23 Interval History: Patient was seen today for psychiatric evaluation and was laying in bed watching television. Patient states that she has been eating better now, continues to have some trouble with sleep and we spoke about other medications to help. We spoke about decreasing the Librium further withdrawal symptoms patient was okay with this. She states that she is trying to get into rehab and is called the access line however is not getting an intake date as of yet and has a social work professor helping her. States that her mood and anxiety of been improving on the current medications. At this time patient denies any suicidal or homical ideations, intent or plan. Patient denies any auditory, visual hallucinations and denies any paranoia or delusions. Patient denies any side effects from the medications and has been compliant with meds. Mental Status Exam: General Appearance: Patient appears to be trans male to female, some facial hair, stated age is alert and cooperative, mild distress, unkempt appearance. Patient appears to have disheveled hygiene and grooming wearing hospital gown with fair eye contact. Behavior: Patient is calmly lying in bed without any agitated behavior. attempts to cooperate Speech: Patient's speech is fluent and nonpressured. monotone Mood/Affect: Patient reports their mood is "better", affect is congruent and constricted Suicidality/Homicidality: Patient is not reporting any suicidal or homicidal ideation, intention, and/or plan. Perceptions: Patient denies any auditory hallucinations of VH Though content/process: There is no evidence of any delusional thought content and thought process is linear and goal-directed. Memory and concentration: AOX3, grossly intact for the purposes of this session Judgment and insight: improving mildly IMPRESSIONS: major depressive disorder Alcohol use disorder severe dependence, currently in withdrawal Nicotine dependence homelessness PLAN: -Continue medical management for alcohol withdrawal, ciwa protocol with prn ativan. -At this time patient DOES NOT meet criteria for inpatient psychiatric admi ssion. The patient is currently not endorsing any suicidal or homicidal ideation, intention, and/or plan. patient is mainly dealing with a substance related issue after the relapse to alcohol. Patient expresses desire to go to inpatient substance abuse rehabilitation once stabilized medically, she can return back to [facility]. SW helping with coordination of this. -Would recommend the following medication changes/additions: Prozac 80 mg qhs for anxiety/mood, continue trazodone 200 mg qhs for insomnia. naltrexone 50 mg daily for etoh cravings. vistaril prn for anxiety. added remeron 15 mg qhs for sleep/mood. taper down Librium for alcohol withdrawal and will d/c in 2 days. -SW to give outpatient resources for MH follow up -Psychiatry will sign off at this time
[2023-05-11] MEDS: hydrOXYzine pamoate 25 MG CAP PO PRN (17:34)
[2023-05-11] MEDS: FLUoxetine HCL 20 MG CAP PO SCH (20:25)
[2023-05-11] MEDS: NON FORMULARY DRUG (Progesterone, Micronized [Progesterone] 200 MG Capsule) PO SCH (20:26)
[2023-05-11] MEDS: traZODone HCL 100 MG TAB PO SCH (20:27)
[2023-05-11] MEDS ORDERED: MIRTAZAPINE 15 MG TAB PO SCH (21:00)
--- NOTE | 2023-05-11 21:00 | PN ---
PROGRESS NOTE SUBJECTIVE: A 57-year-old lady came with some alcohol withdrawal and depression, waiting for Psychiatry to adjust psych medications. The patient wants to talk to a psychiatrist she says about the psych medications. Continue with alcohol/CIWA protocol. OBJECTIVE: GENERAL: Giving appropriate answers, sitting in bed, well developed and well nourished. HEAD: Normocephalic and atraumatic. LUNGS: Clear. ABDOMEN: Soft. MUSCULOSKELETAL: Range of motion is full. NEUROLOGIC: Cranial nerves are intact. ASSESSMENT: 1. Alcohol intoxication. 2. Depression. PLAN: Prozac was increased up to 80 mg a day, trazodone 200 at night, naltrexone 50 daily for alcohol cravings, and Librium 25 t.i.d. Continue on CIWA protocol. Discharge when cleared by Psych and Neuro. MMODL / IJN: [id number] /
[2023-05-11 21:02] VITALS: BP 150/85; PULSE 56; TEMP 97.4
[2023-05-12] MEDS: KETOROLAC 15 MG/ML 1 ML VIAL IVP PRN (05:22)
[2023-05-12] MEDS: hydrOXYzine pamoate 25 MG CAP PO PRN (05:22)
[2023-05-12] MEDS: SODIUM CHLORIDE 0.9% 1,000 ML IV SCH (07:45)
== END 2023-05-12 07:25 | disposition home or self-care (01) | DRG 897 ==
LOC: EC 12:04 → 4SSUR 13:56 → OBSVTOIN 13:56 → 4SSUR 19:15
PROVIDERS: ADMIT Family Medicine; ATTEND Family Medicine
PROC: HZ2ZZZZ Detoxification Services for Substance Abuse Treatment (ICD-10-PCS; principal; 2023-05-09)
DX: F10.229 Alcohol dependence with intoxication, unspecified (principal); R45.851 Suicidal ideations; F10.239 Alcohol dependence with withdrawal, unspecified; J44.9 Chronic obstructive pulmonary disease, unspecified; F32.9 Major depressive disorder, single episode, unspecified; F17.210 Nicotine dependence, cigarettes, uncomplicated; Y90.8 Blood alcohol level of 240 mg/100 ml or more; Z79.899 Other long term (current) drug therapy; I25.2 Old myocardial infarction; Z28.310 Unvaccinated for COVID-19; Z95.5 Presence of coronary angioplasty implant and graft; Z59.00 Homelessness unspecified; Z56.0 Unemployment, unspecified; Z85.9 Personal history of malignant neoplasm, unspecified
CPT/HCPCS: 36415; 80053; 80320; 82075; 85025; 96374; 99285